=== PATIENT | male | born 1975 | race Caucasian/White ===

== ENCOUNTER 2021-03-04 14:26 | Inpatient (IN) | payer MEDICARE, MEDICAID ==
[~2021-03-04] VITALS: Ht 172.7 cm; Wt 80.3 kg
[2021-03-04] MEDS ORDERED: LEVO50 PO (18:23)
[2021-03-04] MEDS ORDERED: CLOZ100T32 PO ×2 (18:23)
[2021-03-04] MEDS ORDERED: LITH600C5 PO (18:23)
[2021-03-04] MEDS ORDERED: DIVA-80 PO (18:25)
[2021-03-04] MEDS ORDERED: HALOPERIDOL LACTATE 5 MG/ML VIAL ONE (18:56)
[2021-03-04] MEDS ORDERED: LORazepam 2 MG/ML VIAL ONE (18:56)
[2021-03-04] MEDS ORDERED: DiphenhydrAMINE HCL 50 MG/ML VIAL ONE (18:56)
[2021-03-04] MEDS ORDERED: LORazepam 2 MG/ML VIAL IM ONE (19:00)
[2021-03-04] MEDS ORDERED: HALOPERIDOL LACTATE 5 MG/ML VIAL IM ONE (19:00)
[2021-03-04] MEDS ORDERED: DiphenhydrAMINE HCL 50 MG/ML VIAL IM ONE (19:00)
[2021-03-04 19:30] VITALS: BP 124/91
[2021-03-05 05:13] VITALS: BP 108/72
[2021-03-05] MEDS: LEVOTHYROXINE SODIUM 50 MCG TABLET PO SCH (06:26)
[2021-03-05] MEDS ORDERED: LOPERAMIDE HCL 2 MG CAPSULE PO PRN (06:30)
[2021-03-05] MEDS ORDERED: IBUPROFEN 400 MG TABLET PO PRN (06:30)
[2021-03-05] MEDS ORDERED: PETROLATUM,WHITE 28 GM JELLY TP PRN (06:30)
[2021-03-05] MEDS ORDERED: ONDANSETRON HCL 4 MG TABLET PO PRN (06:30)
[2021-03-05] MEDS ORDERED: MAGNESIUM HYDROXIDE SUSPENSION 30 ML UDCUP PO PRN (06:30)
[2021-03-05] MEDS ORDERED: DOCUSATE SODIUM 100 MG CAPSULE PO PRN (06:30)
[2021-03-05] MEDS ORDERED: LEVOTHYROXINE SODIUM 50 MCG TABLET PO SCH (06:30)
[2021-03-05] MEDS ORDERED: CloNIDine HCL 0.1 MG TABLET PO PRN (06:30)
[2021-03-05] MEDS ORDERED: NICOTINE 14 MG/24 HOUR PATCH TD PRN (06:30)
[2021-03-05 09:05] VITALS: BP 100/62
[2021-03-05] MEDS: LORazepam 2 MG TABLET PO PRN ×2 (10:06→17:01)
[2021-03-05] MEDS: HALOPERIDOL 5 MG TABLET PO PRN ×2 (10:06→17:01)
[2021-03-05] MEDS: DIVALPROEX SODIUM 250 MG DR TABLET PO SCH ×2 (10:07→20:30)
[2021-03-05 16:22] VITALS: BP 110/61
[2021-03-05] MEDS: ZOLPIDEM TARTRATE 10 MG TABLET PO PRN (20:30)
[2021-03-06] MEDS: LEVOTHYROXINE SODIUM 50 MCG TABLET PO SCH (06:08)
[2021-03-06 07:51] LABS: EOSINOPHILS % (AUTO) 0 % (1.0-6.0); HEMATOCRIT 42.8 % (41-53); HEMOGLOBIN 13.9 g/dL (13.5-17.5); LYMPHOCYTES # (AUTO) 1.6 K/uL (1.0-4.8); LYMPHOCYTES % (AUTO) 20.3 % (22.0-44.0); MEAN CORPUSCULAR HEMOGLOBIN 29.2 pg (26.0-34.0); MEAN CORPUSCULAR HGB CONC 32.4 G/dL (31.0-37.0); MEAN CORPUSCULAR VOLUME 90 fL (80-100); MONOCYTES # (AUTO) 0.5 K/uL (0.1-1.0); MONOCYTES % (AUTO) 5.7 % (2.0-9.0); NEUTROPHILS # (AUTO) 5.9 K/uL (1.8-7.7); PLATELET COUNT (AUTO) 205 K/uL (150-450); RED BLOOD CELL COUNT(AUTO) 4.74 MIL/uL (4.50-5.90); RED CELL DISTRIBUTION WIDTH 14.7 % (11.5-14.5)
[2021-03-06 07:59] LABS: HEMOGLOBIN A1C 5.6 % (3.8-5.6)
[2021-03-06 08:43] LABS: CHOL/HDL RATIO 2.5 (4.2-7.3); FREE T4 (FREE THYROXINE) 1.25 ng/dL (0.76-1.46); THYROID STIMULATING HORMONE 0.45 uIU/mL (0.36-3.74)
[2021-03-06 08:48] VITALS: BP 106/72
[2021-03-06] MEDS: DIVALPROEX SODIUM 250 MG DR TABLET PO SCH ×2 (08:55→20:44)
[2021-03-06] MEDS ORDERED: CloZAPine 25 MG TABLET PO SCH (09:00)
[2021-03-06] MEDS: LORazepam 2 MG TABLET PO PRN ×2 (09:10→15:40)
[2021-03-06] MEDS: HALOPERIDOL 5 MG TABLET PO PRN (15:40)
[2021-03-06 16:08] VITALS: BP 108/61
[2021-03-07 02:16] VITALS: BP 104/66
[2021-03-07] MEDS: LEVOTHYROXINE SODIUM 50 MCG TABLET PO SCH (06:33)
[2021-03-07] MEDS: DIVALPROEX SODIUM 250 MG DR TABLET PO SCH ×2 (08:41→21:09)
[2021-03-07] MEDS: LORazepam 2 MG TABLET PO PRN ×2 (08:41→15:41)
[2021-03-07] MEDS ORDERED: CloZAPine 25 MG TABLET PO SCH ×2 (09:00→21:00)
[2021-03-07] MEDS: HALOPERIDOL 5 MG TABLET PO PRN ×2 (09:46→15:41)
[2021-03-07 10:07] VITALS: BP 110/66
[2021-03-07 16:29] VITALS: BP 106/65
[2021-03-08] MEDS: LEVOTHYROXINE SODIUM 50 MCG TABLET PO SCH (06:18)
[2021-03-08 08:16] VITALS: BP 102/60
[2021-03-08] MEDS: DIVALPROEX SODIUM 250 MG DR TABLET PO SCH ×2 (08:48→20:54)
[2021-03-08] MEDS ORDERED: CloZAPine 25 MG TABLET PO SCH ×2 (09:00→21:00)
[2021-03-08 16:23] VITALS: BP 102/62
[2021-03-08] MEDS: HALOPERIDOL 5 MG TABLET PO PRN (16:43)
[2021-03-08] MEDS: LORazepam 2 MG TABLET PO PRN (16:43)
[2021-03-08] MEDS: ZOLPIDEM TARTRATE 10 MG TABLET PO PRN (20:54)
[2021-03-09 06:01] VITALS: BP 110/68
[2021-03-09] MEDS: LEVOTHYROXINE SODIUM 50 MCG TABLET PO SCH (06:27)
[2021-03-09] MEDS: HALOPERIDOL 5 MG TABLET PO PRN (08:25)
[2021-03-09] MEDS: LORazepam 2 MG TABLET PO PRN ×2 (08:25→17:24)
[2021-03-09] MEDS: DIVALPROEX SODIUM 250 MG DR TABLET PO SCH ×2 (08:58→20:43)
[2021-03-09] MEDS: CloZAPine 25 MG TABLET PO SCH ×2 (08:58→20:43)
[2021-03-09 09:20] VITALS: BP 109/66
[2021-03-09 16:27] VITALS: BP 108/67
[2021-03-09] MEDS: ZOLPIDEM TARTRATE 10 MG TABLET PO PRN (20:43)
[2021-03-10 03:21] VITALS: BP 106/62
[2021-03-10] MEDS: LEVOTHYROXINE SODIUM 50 MCG TABLET PO SCH (06:52)
[2021-03-10] MEDS: DIVALPROEX SODIUM 250 MG DR TABLET PO SCH ×2 (08:18→20:31)
[2021-03-10] MEDS: CloZAPine 25 MG TABLET PO SCH ×2 (08:19→20:31)
[2021-03-10] MEDS: LORazepam 2 MG TABLET PO PRN (08:19)
[2021-03-10 08:33] VITALS: BP 112/64
[2021-03-10] MEDS: HALOPERIDOL 5 MG TABLET PO PRN (10:58)
[2021-03-10 16:29] VITALS: BP 104/68
[2021-03-10] MEDS: ZOLPIDEM TARTRATE 10 MG TABLET PO PRN (20:31)
[2021-03-11] MEDS: LEVOTHYROXINE SODIUM 50 MCG TABLET PO SCH (06:03)
[2021-03-11 06:31] VITALS: BP 110/68
[2021-03-11] MEDS: DIVALPROEX SODIUM 250 MG DR TABLET PO SCH ×2 (08:37→21:44)
[2021-03-11 08:38] VITALS: BP 110/77
[2021-03-11] MEDS ORDERED: CloZAPine 25 MG TABLET PO SCH (09:00)
[2021-03-11 16:23] VITALS: BP 112/69
[2021-03-11] MEDS ORDERED: CloZAPine 100 MG TABLET PO SCH (21:00)
[2021-03-12 05:30] VITALS: BP 108/68
[2021-03-12] MEDS: LEVOTHYROXINE SODIUM 50 MCG TABLET PO SCH (06:58)
[2021-03-12] MEDS: LORazepam 2 MG TABLET PO PRN ×3 (08:15→17:22)
[2021-03-12] MEDS: HALOPERIDOL 5 MG TABLET PO PRN (08:15)
[2021-03-12 08:33] VITALS: BP 123/91
[2021-03-12] MEDS: DIVALPROEX SODIUM 250 MG DR TABLET PO SCH ×2 (08:44→20:15)
[2021-03-12] MEDS ORDERED: CloZAPine 25 MG TABLET PO SCH (09:00)
[2021-03-12 16:11] VITALS: BP 110/65
[2021-03-12] MEDS: ZOLPIDEM TARTRATE 10 MG TABLET PO PRN (20:23)
[2021-03-12] MEDS ORDERED: CloZAPine 100 MG TABLET PO SCH (21:00)
[2021-03-13 01:02] VITALS: BP 113/68
[2021-03-13] MEDS: LEVOTHYROXINE SODIUM 50 MCG TABLET PO SCH (06:19)
[2021-03-13 07:44] LABS: BASOPHILS % (AUTO) 0.2 % (0.0-2.0); EOSINOPHILS % (AUTO) 0.2 % (1.0-6.0); HEMATOCRIT 45.1 % (41-53); HEMOGLOBIN 14.7 g/dL (13.5-17.5); LYMPHOCYTES # (AUTO) 1.8 K/uL (1.0-4.8); LYMPHOCYTES % (AUTO) 23.2 % (22.0-44.0); MEAN CORPUSCULAR HEMOGLOBIN 29.1 pg (26.0-34.0); MEAN CORPUSCULAR HGB CONC 32.5 G/dL (31.0-37.0); MEAN CORPUSCULAR VOLUME 90 fL (80-100); MONOCYTES # (AUTO) 0.4 K/uL (0.1-1.0); MONOCYTES % (AUTO) 5.7 % (2.0-9.0); NEUTROPHILS # (AUTO) 5.5 K/uL (1.8-7.7); NEUTROPHILS % (AUTO) 70.7 % (40.0-70.0); PLATELET COUNT (AUTO) 197 K/uL (150-450); RED BLOOD CELL COUNT(AUTO) 5.04 MIL/uL (4.50-5.90); RED CELL DISTRIBUTION WIDTH 14.2 % (11.5-14.5)
[2021-03-13] MEDS: LORazepam 2 MG TABLET PO PRN ×2 (08:05→18:13)
[2021-03-13] MEDS: HALOPERIDOL 5 MG TABLET PO PRN ×2 (08:05→18:13)
[2021-03-13] MEDS: DIVALPROEX SODIUM 250 MG DR TABLET PO SCH ×2 (08:26→21:51)
[2021-03-13 08:33] VITALS: BP 126/86
[2021-03-13] MEDS ORDERED: CloZAPine 25 MG TABLET PO SCH (09:00)
[2021-03-13] MEDS ORDERED: HALOPERIDOL LACTATE 5 MG/ML VIAL ONE (09:09)
[2021-03-13] MEDS ORDERED: LORazepam 2 MG/ML VIAL ONE (09:09)
[2021-03-13] MEDS ORDERED: DiphenhydrAMINE HCL 50 MG/ML VIAL ONE (09:09)
[2021-03-13] MEDS ORDERED: HALOPERIDOL LACTATE 5 MG/ML VIAL IM ONE (09:30)
[2021-03-13] MEDS ORDERED: DiphenhydrAMINE HCL 50 MG/ML VIAL IM ONE (09:30)
[2021-03-13] MEDS ORDERED: LORazepam 2 MG/ML VIAL IM ONE (09:30)
[2021-03-13 16:18] VITALS: BP 109/69
[2021-03-13] MEDS ORDERED: CloZAPine 100 MG TABLET PO SCH (21:00)
[2021-03-14 01:48] VITALS: BP 122/66
[2021-03-14] MEDS: LEVOTHYROXINE SODIUM 50 MCG TABLET PO SCH (06:21)
[2021-03-14] MEDS: LORazepam 2 MG TABLET PO PRN ×3 (07:50→16:44)
[2021-03-14] MEDS: HALOPERIDOL 5 MG TABLET PO PRN ×2 (07:50→16:44)
[2021-03-14] MEDS: CloZAPine 100 MG TABLET PO SCH ×2 (08:31→20:41)
[2021-03-14] MEDS: DIVALPROEX SODIUM 250 MG DR TABLET PO SCH ×2 (08:31→20:40)
[2021-03-14 08:54] VITALS: BP 138/71
[2021-03-14] MEDS ORDERED: HALOPERIDOL LACTATE 5 MG/ML VIAL ONE (13:35)
[2021-03-14] MEDS ORDERED: DiphenhydrAMINE HCL 50 MG/ML VIAL ONE (13:35)
[2021-03-14] MEDS ORDERED: LORazepam 2 MG/ML VIAL ONE (13:35)
[2021-03-14] MEDS ORDERED: HALOPERIDOL LACTATE 5 MG/ML VIAL IM ONE (13:45)
[2021-03-14] MEDS ORDERED: DiphenhydrAMINE HCL 50 MG/ML VIAL IM ONE (13:45)
[2021-03-14] MEDS ORDERED: LORazepam 2 MG/ML VIAL IM ONE (13:45)
[2021-03-14 16:20] VITALS: BP 153/73
[2021-03-15 06:27] VITALS: BP 132/76
[2021-03-15] MEDS: LEVOTHYROXINE SODIUM 50 MCG TABLET PO SCH (06:30)
[2021-03-15] MEDS: LORazepam 2 MG TABLET PO PRN ×2 (07:54→12:44)
[2021-03-15] MEDS: DIVALPROEX SODIUM 250 MG DR TABLET PO SCH ×2 (08:03→21:28)
[2021-03-15] MEDS: CloZAPine 100 MG TABLET PO SCH ×2 (08:03→21:28)
[2021-03-15 08:29] VITALS: BP 125/68
[2021-03-15] MEDS ORDERED: DiphenhydrAMINE HCL 50 MG/ML VIAL IM ONE ×2 (09:15→14:30)
[2021-03-15] MEDS ORDERED: LORazepam 2 MG/ML VIAL IM ONE ×2 (09:15→14:30)
[2021-03-15] MEDS ORDERED: HALOPERIDOL LACTATE 5 MG/ML VIAL IM ONE (09:15)
[2021-03-15] MEDS ORDERED: TUBERCULIN, PURIFIED PROTEIN DERIVATIVE 5 TU/0.1 ML SYRINGE ID ONE (09:45)
[2021-03-15 10:11] LABS: ANION GAP 11 mmol/L (8-16); CALCIUM, TOTAL 9.3 mg/dL (8.8-10.5); CARBON DIOXIDE 25 mmol/L (22-29); CHLORIDE 106 mmol/L (98-107); CREATININE 0.66 mg/dL (0.60-1.30); GLOMERULAR FILTR. RATE CALC > 60 mL/min (>60); GLUCOSE,RANDOM 87 mg/dL (70-110); POTASSIUM 4.6 mmol/L (3.5-5.1); SODIUM SERUM 142 mmol/L (136-145); UREA NITROGEN, BLOOD 14 mg/dL (7-18)
[2021-03-15] MEDS ORDERED: ChlorproMAZINE HCL 50 MG/2 ML AMP ONE (14:17)
[2021-03-15] MEDS ORDERED: ChlorproMAZINE HCL 50 MG/2 ML AMP IM ONE (14:30)
[2021-03-15 16:24] VITALS: BP 110/68
[2021-03-16 05:03] VITALS: BP 124/69
[2021-03-16] MEDS: LEVOTHYROXINE SODIUM 50 MCG TABLET PO SCH (06:38)
[2021-03-16] MEDS: LORazepam 2 MG TABLET PO PRN (07:46)
[2021-03-16] MEDS: DIVALPROEX SODIUM 250 MG DR TABLET PO SCH ×2 (08:01→21:00)
[2021-03-16 08:26] VITALS: BP 133/71
[2021-03-16] MEDS ORDERED: CloZAPine 25 MG TABLET PO SCH (09:00)
[2021-03-16] MEDS ORDERED: ChlorproMAZINE HCL 50 MG/2 ML AMP IM ONE ×2 (09:00→16:30)
[2021-03-16] MEDS ORDERED: LORazepam 2 MG/ML VIAL IM ONE ×2 (09:00→16:30)
[2021-03-16] MEDS ORDERED: DiphenhydrAMINE HCL 50 MG/ML VIAL IM ONE ×2 (09:00→16:30)
[2021-03-16] MEDS ORDERED: CloZAPine 100 MG TABLET PO SCH (21:00)
[2021-03-17] MEDS: LEVOTHYROXINE SODIUM 50 MCG TABLET PO SCH (06:43)
[2021-03-17] MEDS: DIVALPROEX SODIUM 250 MG DR TABLET PO SCH ×2 (08:20→20:28)
[2021-03-17 08:28] VITALS: BP 110/72
[2021-03-17] MEDS ORDERED: CloZAPine 25 MG TABLET PO SCH (09:00)
[2021-03-17] MEDS: HALOPERIDOL 5 MG TABLET PO PRN (09:03)
[2021-03-17] MEDS: LORazepam 2 MG TABLET PO PRN ×2 (09:03→16:39)
[2021-03-17] MEDS ORDERED: ChlorproMAZINE HCL 50 MG/2 ML AMP ONE (09:47)
[2021-03-17] MEDS ORDERED: LORazepam 2 MG/ML VIAL ONE (09:47)
[2021-03-17] MEDS ORDERED: DiphenhydrAMINE HCL 50 MG/ML VIAL ONE (09:47)
[2021-03-17] MEDS ORDERED: ChlorproMAZINE HCL 50 MG/2 ML AMP IM ONE (10:30)
[2021-03-17] MEDS ORDERED: LORazepam 2 MG/ML VIAL IM ONE (10:30)
[2021-03-17] MEDS ORDERED: DiphenhydrAMINE HCL 50 MG/ML VIAL IM ONE (10:30)
[2021-03-17 16:25] VITALS: BP 105/75
[2021-03-17] MEDS: LITHIUM CARBONATE 300 MG CAPSULE PO SCH (20:54)
[2021-03-17] MEDS ORDERED: CloZAPine 100 MG TABLET PO SCH (21:00)
[2021-03-18 05:34] VITALS: BP 131/68
[2021-03-18] MEDS: LEVOTHYROXINE SODIUM 50 MCG TABLET PO SCH (06:38)
[2021-03-18] MEDS: HALOPERIDOL 5 MG TABLET PO PRN ×2 (08:20→16:27)
[2021-03-18] MEDS: LORazepam 2 MG TABLET PO PRN ×2 (08:20→16:27)
[2021-03-18] MEDS: DIVALPROEX SODIUM 250 MG DR TABLET PO SCH ×2 (08:54→20:46)
[2021-03-18] MEDS: LITHIUM CARBONATE 300 MG CAPSULE PO SCH ×2 (08:54→20:46)
[2021-03-18] MEDS: CloZAPine 100 MG TABLET PO SCH ×2 (08:54→20:46)
[2021-03-18 09:01] VITALS: BP 117/81
[2021-03-18 16:22] VITALS: BP 125/86
[2021-03-19] MEDS: LEVOTHYROXINE SODIUM 50 MCG TABLET PO SCH (06:10)
[2021-03-19] MEDS: LORazepam 2 MG TABLET PO PRN (08:25)
[2021-03-19] MEDS: HALOPERIDOL 5 MG TABLET PO PRN (08:25)
[2021-03-19] MEDS: CloZAPine 100 MG TABLET PO SCH ×2 (08:51→20:38)
[2021-03-19] MEDS: DIVALPROEX SODIUM 250 MG DR TABLET PO SCH ×2 (08:51→20:38)
[2021-03-19] MEDS: LITHIUM CARBONATE 300 MG CAPSULE PO SCH ×2 (08:51→20:38)
[2021-03-19 10:11] VITALS: BP 109/69
[2021-03-19 16:21] VITALS: BP 106/66
[2021-03-20 01:26] VITALS: BP 109/81
[2021-03-20] MEDS: LEVOTHYROXINE SODIUM 50 MCG TABLET PO SCH (06:06)
[2021-03-20] MEDS: CloZAPine 100 MG TABLET PO SCH ×2 (08:24→20:48)
[2021-03-20] MEDS: DIVALPROEX SODIUM 250 MG DR TABLET PO SCH ×2 (08:24→20:48)
[2021-03-20] MEDS: LITHIUM CARBONATE 300 MG CAPSULE PO SCH ×2 (08:24→20:48)
[2021-03-20] MEDS: LORazepam 2 MG TABLET PO PRN ×2 (08:24→15:35)
[2021-03-20] MEDS: HALOPERIDOL 5 MG TABLET PO PRN ×2 (08:41→15:35)
[2021-03-20 10:13] VITALS: BP 113/73
[2021-03-20] MEDS ORDERED: LORazepam 2 MG/ML VIAL ONE (11:11)
[2021-03-20] MEDS ORDERED: DiphenhydrAMINE HCL 50 MG/ML VIAL ONE (11:11)
[2021-03-20] MEDS ORDERED: ChlorproMAZINE HCL 50 MG/2 ML AMP ONE (11:11)
[2021-03-20] MEDS ORDERED: DiphenhydrAMINE HCL 50 MG/ML VIAL IM ONE (11:15)
[2021-03-20] MEDS ORDERED: LORazepam 2 MG/ML VIAL IM ONE (11:15)
[2021-03-20] MEDS ORDERED: ChlorproMAZINE HCL 50 MG/2 ML AMP IM ONE (11:15)
[2021-03-20 17:09] VITALS: BP 103/75
[2021-03-21 04:00] VITALS: BP 110/75
[2021-03-21] MEDS: LEVOTHYROXINE SODIUM 50 MCG TABLET PO SCH (06:05)
[2021-03-21 07:18] LABS: BASOPHILS % (AUTO) 0.1 % (0.0-2.0); EOSINOPHILS % (AUTO) 0 % (1.0-6.0); HEMATOCRIT 43.1 % (41-53); HEMOGLOBIN 14.1 g/dL (13.5-17.5); LYMPHOCYTES # (AUTO) 1.9 K/uL (1.0-4.8); MEAN CORPUSCULAR HEMOGLOBIN 28.9 pg (26.0-34.0); MEAN CORPUSCULAR HGB CONC 32.6 G/dL (31.0-37.0); MEAN CORPUSCULAR VOLUME 89 fL (80-100); MONOCYTES # (AUTO) 0.7 K/uL (0.1-1.0); MONOCYTES % (AUTO) 7.7 % (2.0-9.0); NEUTROPHILS # (AUTO) 6.4 K/uL (1.8-7.7); NEUTROPHILS % (AUTO) 71.2 % (40.0-70.0); PLATELET COUNT (AUTO) 192 K/uL (150-450); RED BLOOD CELL COUNT(AUTO) 4.86 MIL/uL (4.50-5.90)
[2021-03-21 09:15] VITALS: BP 110/72
[2021-03-21] MEDS: CloZAPine 100 MG TABLET PO SCH ×2 (09:24→20:06)
[2021-03-21] MEDS: DIVALPROEX SODIUM 250 MG DR TABLET PO SCH ×2 (09:24→20:06)
[2021-03-21] MEDS: LITHIUM CARBONATE 300 MG CAPSULE PO SCH ×2 (09:24→20:06)
[2021-03-21] MEDS: LORazepam 2 MG TABLET PO PRN (11:35)
[2021-03-21 16:29] VITALS: BP 107/66
[2021-03-22 05:14] VITALS: BP 114/72
[2021-03-22] MEDS: LEVOTHYROXINE SODIUM 50 MCG TABLET PO SCH (06:03)
[2021-03-22] MEDS: LITHIUM CARBONATE 300 MG CAPSULE PO SCH ×2 (08:11→20:04)
[2021-03-22] MEDS: CloZAPine 100 MG TABLET PO SCH ×2 (08:11→20:04)
[2021-03-22] MEDS: LORazepam 2 MG TABLET PO PRN ×2 (08:11→13:20)
[2021-03-22] MEDS: DIVALPROEX SODIUM 250 MG DR TABLET PO SCH ×2 (08:11→20:04)
[2021-03-22 08:18] VITALS: BP 101/66
[2021-03-22 16:28] VITALS: BP 96/61
[2021-03-23 04:49] VITALS: BP 104/71
[2021-03-23] MEDS: LEVOTHYROXINE SODIUM 50 MCG TABLET PO SCH (06:18)
[2021-03-23] MEDS: LITHIUM CARBONATE 600 MG CAPSULE PO SCH ×2 (08:23→20:38)
[2021-03-23] MEDS: CloZAPine 100 MG TABLET PO SCH ×2 (08:23→20:38)
[2021-03-23] MEDS: DIVALPROEX SODIUM 250 MG DR TABLET PO SCH ×2 (08:23→20:38)
[2021-03-23 09:09] VITALS: BP 117/71
[2021-03-23 16:11] VITALS: BP 109/73
[2021-03-24 05:41] VITALS: BP 121/85
[2021-03-24] MEDS: LEVOTHYROXINE SODIUM 50 MCG TABLET PO SCH (06:16)
[2021-03-24] MEDS: LITHIUM CARBONATE 600 MG CAPSULE PO SCH ×2 (09:19→20:49)
[2021-03-24] MEDS: DIVALPROEX SODIUM 250 MG DR TABLET PO SCH ×2 (09:20→20:49)
[2021-03-24] MEDS: CloZAPine 100 MG TABLET PO SCH ×2 (09:20→20:49)
[2021-03-24 09:39] VITALS: BP 140/83
[2021-03-24] MEDS: HALOPERIDOL 5 MG TABLET PO PRN (10:51)
[2021-03-24] MEDS: LORazepam 2 MG TABLET PO PRN ×2 (10:51→16:41)
[2021-03-24] MEDS: ACETAMINOPHEN 325 MG TABLET PO PRN (11:04)
[2021-03-24 16:23] VITALS: BP 109/76
[2021-03-25 02:52] VITALS: BP 121/82
[2021-03-25] MEDS: LEVOTHYROXINE SODIUM 50 MCG TABLET PO SCH (06:55)
[2021-03-25] MEDS: DIVALPROEX SODIUM 250 MG DR TABLET PO SCH ×2 (08:40→21:43)
[2021-03-25] MEDS: CloZAPine 100 MG TABLET PO SCH ×2 (08:40→21:44)
[2021-03-25] MEDS: LITHIUM CARBONATE 600 MG CAPSULE PO SCH ×2 (08:41→21:43)
[2021-03-25 09:06] VITALS: BP 111/73
[2021-03-25] MEDS: LORazepam 2 MG TABLET PO PRN (14:42)
[2021-03-25 16:16] VITALS: BP 118/79
[2021-03-26 04:52] VITALS: BP 115/76
[2021-03-26] MEDS: LEVOTHYROXINE SODIUM 50 MCG TABLET PO SCH (06:25)
[2021-03-26] MEDS: LORazepam 2 MG TABLET PO PRN (08:07)
[2021-03-26] MEDS: CloZAPine 100 MG TABLET PO SCH ×2 (08:07→21:30)
[2021-03-26] MEDS: DIVALPROEX SODIUM 250 MG DR TABLET PO SCH ×2 (08:07→21:30)
[2021-03-26] MEDS: LITHIUM CARBONATE 600 MG CAPSULE PO SCH ×2 (08:07→21:30)
[2021-03-26 09:04] VITALS: BP 123/78
[2021-03-26] MEDS: HALOPERIDOL 5 MG TABLET PO PRN (12:41)
[2021-03-26 15:13] LABS: BASOPHILS % (AUTO) 1.1 % (0.0-2.0); EOSINOPHILS % (AUTO) 0 % (1.0-6.0); HEMATOCRIT 42.2 % (41-53); HEMOGLOBIN 13.6 g/dL (13.5-17.5); LYMPHOCYTES # (AUTO) 1.7 K/uL (1.0-4.8); LYMPHOCYTES % (AUTO) 18.8 % (22.0-44.0); MEAN CORPUSCULAR HGB CONC 32.3 G/dL (31.0-37.0); MEAN CORPUSCULAR VOLUME 90 fL (80-100); MONOCYTES # (AUTO) 0.6 K/uL (0.1-1.0); MONOCYTES % (AUTO) 7.1 % (2.0-9.0); NEUTROPHILS # (AUTO) 6.7 K/uL (1.8-7.7); PLATELET COUNT (AUTO) 223 K/uL (150-450); RED CELL DISTRIBUTION WIDTH 14.7 % (11.5-14.5)
[2021-03-26 16:13] VITALS: BP 151/67
[2021-03-27 00:22] VITALS: BP 129/75
[2021-03-27] MEDS: LEVOTHYROXINE SODIUM 50 MCG TABLET PO SCH (06:28)
[2021-03-27 08:20] VITALS: BP 130/82
[2021-03-27] MEDS: DIVALPROEX SODIUM 250 MG DR TABLET PO SCH ×2 (08:22→21:29)
[2021-03-27] MEDS: LITHIUM CARBONATE 600 MG CAPSULE PO SCH ×2 (08:22→21:29)
[2021-03-27] MEDS: CloZAPine 100 MG TABLET PO SCH ×2 (08:22→21:29)
[2021-03-27] MEDS: LORazepam 2 MG TABLET PO PRN ×2 (11:26→16:03)
[2021-03-27] MEDS: HALOPERIDOL 5 MG TABLET PO PRN (16:03)
[2021-03-27 16:06] VITALS: BP 123/75
[2021-03-28 04:22] VITALS: BP 111/88
[2021-03-28] MEDS: LEVOTHYROXINE SODIUM 50 MCG TABLET PO SCH (06:33)
[2021-03-28 08:11] VITALS: BP 103/68
[2021-03-28] MEDS: LITHIUM CARBONATE 600 MG CAPSULE PO SCH ×2 (08:47→21:31)
[2021-03-28] MEDS: CloZAPine 100 MG TABLET PO SCH ×2 (08:47→21:31)
[2021-03-28] MEDS: DIVALPROEX SODIUM 250 MG DR TABLET PO SCH ×2 (08:47→21:30)
[2021-03-28] MEDS: HALOPERIDOL 5 MG TABLET PO PRN (15:50)
[2021-03-28] MEDS: LORazepam 2 MG TABLET PO PRN (15:50)
[2021-03-28 16:15] VITALS: BP 109/73
[2021-03-28] MEDS: ZOLPIDEM TARTRATE 10 MG TABLET PO PRN (21:31)
[2021-03-29] MEDS: LEVOTHYROXINE SODIUM 50 MCG TABLET PO SCH (06:22)
[2021-03-29 06:59] VITALS: BP 115/76
[2021-03-29] MEDS: DIVALPROEX SODIUM 250 MG DR TABLET PO SCH ×2 (09:04→20:31)
[2021-03-29] MEDS: LITHIUM CARBONATE 600 MG CAPSULE PO SCH ×2 (09:05→20:30)
[2021-03-29] MEDS: CloZAPine 100 MG TABLET PO SCH ×2 (09:05→20:31)
[2021-03-29] MEDS: LORazepam 2 MG TABLET PO PRN ×3 (09:05→20:30)
[2021-03-29] MEDS: HALOPERIDOL 5 MG TABLET PO PRN ×3 (09:05→20:30)
[2021-03-29 10:48] VITALS: BP 100/60
[2021-03-29 16:41] VITALS: BP 118/76
[2021-03-30] MEDS: LEVOTHYROXINE SODIUM 50 MCG TABLET PO SCH (06:13)
[2021-03-30 06:27] VITALS: BP 121/76
[2021-03-30] MEDS: CloZAPine 100 MG TABLET PO SCH ×2 (08:52→21:35)
[2021-03-30] MEDS: DIVALPROEX SODIUM 250 MG DR TABLET PO SCH ×2 (08:52→21:36)
[2021-03-30] MEDS: LITHIUM CARBONATE 600 MG CAPSULE PO SCH ×2 (08:52→21:35)
[2021-03-30] MEDS: HALOPERIDOL 5 MG TABLET PO PRN (08:53)
[2021-03-30] MEDS: LORazepam 2 MG TABLET PO PRN (08:53)
[2021-03-30 09:22] VITALS: BP 103/51
[2021-03-30 16:18] VITALS: BP 117/70
[2021-03-31 06:07] VITALS: BP 120/76
[2021-03-31] MEDS: LEVOTHYROXINE SODIUM 50 MCG TABLET PO SCH (06:15)
[2021-03-31] MEDS: LITHIUM CARBONATE 600 MG CAPSULE PO SCH ×2 (08:27→21:02)
[2021-03-31] MEDS: DIVALPROEX SODIUM 250 MG DR TABLET PO SCH ×2 (08:27→21:02)
[2021-03-31] MEDS: CloZAPine 100 MG TABLET PO SCH ×2 (08:27→21:02)
[2021-03-31 08:31] VITALS: BP 122/82
[2021-03-31] MEDS: HALOPERIDOL 5 MG TABLET PO PRN (13:48)
[2021-03-31 16:38] VITALS: BP 129/83
[2021-04-01 00:35] VITALS: BP 121/70
[2021-04-01] MEDS: LEVOTHYROXINE SODIUM 50 MCG TABLET PO SCH (06:56)
[2021-04-01 08:23] VITALS: BP 113/72
[2021-04-01] MEDS: DIVALPROEX SODIUM 250 MG DR TABLET PO SCH ×2 (08:28→21:41)
[2021-04-01] MEDS: LORazepam 2 MG TABLET PO PRN (08:28)
[2021-04-01] MEDS: LITHIUM CARBONATE 600 MG CAPSULE PO SCH ×2 (08:28→21:42)
[2021-04-01] MEDS: CloZAPine 100 MG TABLET PO SCH ×2 (08:28→21:42)
[2021-04-01] MEDS: HALOPERIDOL 5 MG TABLET PO PRN (13:14)
[2021-04-01 16:13] VITALS: BP 109/61
[2021-04-01] MEDS: ZOLPIDEM TARTRATE 10 MG TABLET PO PRN (21:41)
[2021-04-02 04:36] VITALS: BP 118/76
[2021-04-02] MEDS: LEVOTHYROXINE SODIUM 50 MCG TABLET PO SCH (06:23)
[2021-04-02 08:02] LABS: BASOPHILS % (AUTO) 0.2 % (0.0-2.0); EOSINOPHILS % (AUTO) 0 % (1.0-6.0); HEMATOCRIT 44.6 % (41-53); HEMOGLOBIN 14.6 g/dL (13.5-17.5); LYMPHOCYTES % (AUTO) 18.1 % (22.0-44.0); MEAN CORPUSCULAR HEMOGLOBIN 28.9 pg (26.0-34.0); MEAN CORPUSCULAR HGB CONC 32.7 G/dL (31.0-37.0); MEAN CORPUSCULAR VOLUME 89 fL (80-100); MONOCYTES # (AUTO) 0.6 K/uL (0.1-1.0); MONOCYTES % (AUTO) 5.1 % (2.0-9.0); NEUTROPHILS # (AUTO) 8.3 K/uL (1.8-7.7); NEUTROPHILS % (AUTO) 76.6 % (40.0-70.0); PLATELET COUNT (AUTO) 209 K/uL (150-450); RED BLOOD CELL COUNT(AUTO) 5.03 MIL/uL (4.50-5.90); RED CELL DISTRIBUTION WIDTH 14.2 % (11.5-14.5)
[2021-04-02 08:21] VITALS: BP 116/69
[2021-04-02] MEDS: CloZAPine 100 MG TABLET PO SCH ×2 (08:29→20:51)
[2021-04-02] MEDS: DIVALPROEX SODIUM 250 MG DR TABLET PO SCH ×2 (08:29→20:51)
[2021-04-02] MEDS: LITHIUM CARBONATE 600 MG CAPSULE PO SCH ×2 (08:29→20:50)
[2021-04-02] MEDS: LORazepam 2 MG TABLET PO PRN (08:29)
[2021-04-02 16:10] VITALS: BP 112/76
[2021-04-03 05:47] VITALS: BP 118/74
[2021-04-03] MEDS: LEVOTHYROXINE SODIUM 50 MCG TABLET PO SCH (06:52)
[2021-04-03 08:22] VITALS: BP 108/75
[2021-04-03] MEDS: CloZAPine 100 MG TABLET PO SCH ×2 (09:08→20:08)
[2021-04-03] MEDS: LITHIUM CARBONATE 600 MG CAPSULE PO SCH ×2 (09:08→20:08)
[2021-04-03] MEDS: DIVALPROEX SODIUM 250 MG DR TABLET PO SCH ×2 (10:46→20:08)
[2021-04-03] MEDS: LORazepam 2 MG TABLET PO PRN (12:10)
[2021-04-03] MEDS: HALOPERIDOL 5 MG TABLET PO PRN (12:10)
[2021-04-03 16:14] VITALS: BP 134/75
[2021-04-04 05:07] VITALS: BP 121/72
[2021-04-04] MEDS: LEVOTHYROXINE SODIUM 50 MCG TABLET PO SCH (06:26)
[2021-04-04] MEDS: CloZAPine 100 MG TABLET PO SCH ×2 (08:22→21:23)
[2021-04-04] MEDS: LORazepam 2 MG TABLET PO PRN ×2 (08:22→15:44)
[2021-04-04] MEDS: DIVALPROEX SODIUM 250 MG DR TABLET PO SCH ×2 (08:22→21:22)
[2021-04-04] MEDS: LITHIUM CARBONATE 600 MG CAPSULE PO SCH ×2 (08:22→21:23)
[2021-04-04 08:29] VITALS: BP 124/76
[2021-04-04] MEDS: HALOPERIDOL 5 MG TABLET PO PRN (15:44)
[2021-04-04 16:18] VITALS: BP 108/66
[2021-04-05 04:55] VITALS: BP 118/76
[2021-04-05] MEDS: LEVOTHYROXINE SODIUM 50 MCG TABLET PO SCH (06:17)
[2021-04-05 08:29] VITALS: BP 115/74
[2021-04-05] MEDS: CloZAPine 100 MG TABLET PO SCH ×2 (08:51→20:29)
[2021-04-05] MEDS: DIVALPROEX SODIUM 250 MG DR TABLET PO SCH ×2 (08:51→20:29)
[2021-04-05] MEDS: LORazepam 2 MG TABLET PO PRN ×2 (08:51→13:12)
[2021-04-05] MEDS: LITHIUM CARBONATE 600 MG CAPSULE PO SCH ×2 (08:51→20:29)
[2021-04-05 16:19] VITALS: BP 113/75
[2021-04-06 03:16] VITALS: BP 113/73
[2021-04-06] MEDS: LEVOTHYROXINE SODIUM 50 MCG TABLET PO SCH (06:12)
[2021-04-06] MEDS: CloZAPine 100 MG TABLET PO SCH ×2 (08:05→20:41)
[2021-04-06] MEDS: LITHIUM CARBONATE 600 MG CAPSULE PO SCH ×2 (08:05→20:41)
[2021-04-06] MEDS: DIVALPROEX SODIUM 250 MG DR TABLET PO SCH ×2 (08:05→20:41)
[2021-04-06] MEDS: LORazepam 2 MG TABLET PO PRN ×3 (08:06→20:25)
[2021-04-06] MEDS: HALOPERIDOL 5 MG TABLET PO PRN ×3 (08:06→20:25)
[2021-04-06 08:22] VITALS: BP 136/93
[2021-04-06 16:16] VITALS: BP 100/76
[2021-04-07 06:26] VITALS: BP 116/76
[2021-04-07] MEDS: LEVOTHYROXINE SODIUM 50 MCG TABLET PO SCH (06:32)
[2021-04-07] MEDS: LITHIUM CARBONATE 600 MG CAPSULE PO SCH ×2 (08:31→20:15)
[2021-04-07] MEDS: CloZAPine 100 MG TABLET PO SCH ×2 (08:31→20:15)
[2021-04-07] MEDS: DIVALPROEX SODIUM 250 MG DR TABLET PO SCH ×2 (08:32→20:15)
[2021-04-07] MEDS: LORazepam 2 MG TABLET PO PRN ×3 (08:37→20:15)
[2021-04-07 08:51] VITALS: BP 121/77
[2021-04-07] MEDS: HALOPERIDOL 5 MG TABLET PO PRN (15:25)
[2021-04-07 16:26] VITALS: BP 128/70
[2021-04-07] MEDS: ZOLPIDEM TARTRATE 10 MG TABLET PO PRN (20:15)
[2021-04-08 05:25] VITALS: BP 122/76
[2021-04-08] MEDS: LEVOTHYROXINE SODIUM 50 MCG TABLET PO SCH (06:58)
[2021-04-08] MEDS: LITHIUM CARBONATE 600 MG CAPSULE PO SCH ×2 (08:14→20:53)
[2021-04-08] MEDS: CloZAPine 100 MG TABLET PO SCH ×2 (08:14→20:52)
[2021-04-08] MEDS: DIVALPROEX SODIUM 250 MG DR TABLET PO SCH ×2 (08:14→20:53)
[2021-04-08] MEDS: LORazepam 2 MG TABLET PO PRN ×3 (08:20→16:48)
[2021-04-08 08:44] VITALS: BP 122/83
[2021-04-08 16:15] VITALS: BP 117/88
[2021-04-08] MEDS: HALOPERIDOL 5 MG TABLET PO PRN (16:48)
[2021-04-08] MEDS: ZOLPIDEM TARTRATE 10 MG TABLET PO PRN (20:53)
[2021-04-09 05:04] VITALS: BP 103/62
[2021-04-09] MEDS: LEVOTHYROXINE SODIUM 50 MCG TABLET PO SCH (06:13)
[2021-04-09] MEDS: LORazepam 2 MG TABLET PO PRN ×3 (08:40→18:05)
[2021-04-09] MEDS: LITHIUM CARBONATE 600 MG CAPSULE PO SCH ×2 (08:43→20:06)
[2021-04-09] MEDS: DIVALPROEX SODIUM 250 MG DR TABLET PO SCH ×2 (08:43→20:06)
[2021-04-09] MEDS: CloZAPine 100 MG TABLET PO SCH ×2 (08:43→20:06)
[2021-04-09 08:48] VITALS: BP 126/74
[2021-04-09 16:27] VITALS: BP 125/78
[2021-04-10 01:29] VITALS: BP 126/81
[2021-04-10] MEDS: LEVOTHYROXINE SODIUM 50 MCG TABLET PO SCH (06:14)
[2021-04-10 07:16] LABS: BASOPHILS % (AUTO) 0.2 % (0.0-2.0); EOSINOPHILS % (AUTO) 0 % (1.0-6.0); HEMATOCRIT 40.9 % (41-53); HEMOGLOBIN 13.6 g/dL (13.5-17.5); LYMPHOCYTES # (AUTO) 1.3 K/uL (1.0-4.8); LYMPHOCYTES % (AUTO) 12.1 % (22.0-44.0); MEAN CORPUSCULAR HEMOGLOBIN 28.9 pg (26.0-34.0); MEAN CORPUSCULAR HGB CONC 33.1 G/dL (31.0-37.0); MEAN CORPUSCULAR VOLUME 87 fL (80-100); MONOCYTES # (AUTO) 0.8 K/uL (0.1-1.0); NEUTROPHILS # (AUTO) 8.9 K/uL (1.8-7.7); NEUTROPHILS % (AUTO) 80.7 % (40.0-70.0); PLATELET COUNT (AUTO) 190 K/uL (150-450); RED BLOOD CELL COUNT(AUTO) 4.69 MIL/uL (4.50-5.90); RED CELL DISTRIBUTION WIDTH 13.9 % (11.5-14.5)
[2021-04-10 08:53] VITALS: BP 117/78
[2021-04-10] MEDS: DIVALPROEX SODIUM 250 MG DR TABLET PO SCH ×2 (08:53→20:58)
[2021-04-10] MEDS: LORazepam 2 MG TABLET PO PRN ×3 (08:53→18:18)
[2021-04-10] MEDS: CloZAPine 100 MG TABLET PO SCH ×2 (08:53→20:58)
[2021-04-10] MEDS: HALOPERIDOL 5 MG TABLET PO PRN ×2 (08:56→16:30)
[2021-04-10] MEDS: LITHIUM CARBONATE 600 MG CAPSULE PO SCH ×2 (08:56→20:58)
[2021-04-10 16:21] VITALS: BP 121/83
[2021-04-10] MEDS: ZOLPIDEM TARTRATE 10 MG TABLET PO PRN (20:58)
[2021-04-11 02:10] VITALS: BP 126/68
[2021-04-11] MEDS: LEVOTHYROXINE SODIUM 50 MCG TABLET PO SCH (06:28)
[2021-04-11 08:35] VITALS: BP 117/73
[2021-04-11] MEDS: CloZAPine 100 MG TABLET PO SCH ×2 (09:23→20:44)
[2021-04-11] MEDS: DIVALPROEX SODIUM 250 MG DR TABLET PO SCH ×2 (09:23→20:44)
[2021-04-11] MEDS: LITHIUM CARBONATE 600 MG CAPSULE PO SCH ×2 (09:23→20:44)
[2021-04-11] MEDS: LORazepam 2 MG TABLET PO PRN ×2 (12:25→16:25)
[2021-04-11] MEDS: HALOPERIDOL 5 MG TABLET PO PRN (15:58)
[2021-04-11 16:12] VITALS: BP 123/80
[2021-04-11] MEDS: ZOLPIDEM TARTRATE 10 MG TABLET PO PRN (20:44)
[2021-04-12 03:10] VITALS: BP 106/72
[2021-04-12] MEDS: LEVOTHYROXINE SODIUM 50 MCG TABLET PO SCH (06:08)
[2021-04-12 07:38] LABS: COVID AG,FIA SOURCE NASOPHARYNGEAL
[2021-04-12] MEDS: LORazepam 2 MG TABLET PO PRN ×2 (08:30→16:14)
[2021-04-12] MEDS: DIVALPROEX SODIUM 250 MG DR TABLET PO SCH ×2 (08:31→20:53)
[2021-04-12] MEDS: CloZAPine 100 MG TABLET PO SCH ×2 (08:31→20:54)
[2021-04-12] MEDS: LITHIUM CARBONATE 600 MG CAPSULE PO SCH ×2 (08:31→20:54)
[2021-04-12] MEDS: HALOPERIDOL 5 MG TABLET PO PRN ×2 (09:42→16:14)
[2021-04-12 11:10] VITALS: BP 123/90
[2021-04-12 16:17] VITALS: BP 120/76
[2021-04-12] MEDS: ZOLPIDEM TARTRATE 10 MG TABLET PO PRN (20:54)
[2021-04-13 05:48] VITALS: BP 118/80
[2021-04-13] MEDS: LEVOTHYROXINE SODIUM 50 MCG TABLET PO SCH (06:17)
[2021-04-13 08:35] VITALS: BP 134/91
[2021-04-13] MEDS: DIVALPROEX SODIUM 250 MG DR TABLET PO SCH ×2 (09:05→20:06)
[2021-04-13] MEDS: CloZAPine 100 MG TABLET PO SCH ×2 (09:05→20:06)
[2021-04-13] MEDS: LORazepam 2 MG TABLET PO PRN ×2 (09:05→14:22)
[2021-04-13] MEDS: LITHIUM CARBONATE 600 MG CAPSULE PO SCH ×2 (09:05→20:05)
[2021-04-13 16:20] VITALS: BP 104/65
[2021-04-13] MEDS: ZOLPIDEM TARTRATE 10 MG TABLET PO PRN (20:07)
[2021-04-14 04:50] VITALS: BP 122/78
[2021-04-14] MEDS: LEVOTHYROXINE SODIUM 50 MCG TABLET PO SCH (06:41)
[2021-04-14] MEDS: DIVALPROEX SODIUM 250 MG DR TABLET PO SCH ×2 (07:57→20:32)
[2021-04-14] MEDS: LITHIUM CARBONATE 600 MG CAPSULE PO SCH ×2 (07:57→20:32)
[2021-04-14] MEDS: LORazepam 2 MG TABLET PO PRN ×3 (07:57→17:04)
[2021-04-14] MEDS: CloZAPine 100 MG TABLET PO SCH ×2 (07:57→20:32)
[2021-04-14 08:35] VITALS: BP 132/78
[2021-04-14 16:25] VITALS: BP 127/74
[2021-04-14] MEDS: HALOPERIDOL 5 MG TABLET PO PRN (17:04)
[2021-04-14] MEDS: ZOLPIDEM TARTRATE 10 MG TABLET PO PRN (20:33)
[2021-04-15 05:39] VITALS: BP 124/76
[2021-04-15] MEDS: LEVOTHYROXINE SODIUM 50 MCG TABLET PO SCH (06:40)
[2021-04-15] MEDS: DIVALPROEX SODIUM 250 MG DR TABLET PO SCH ×2 (08:00→20:36)
[2021-04-15] MEDS: LITHIUM CARBONATE 600 MG CAPSULE PO SCH ×2 (08:00→20:36)
[2021-04-15] MEDS: LORazepam 2 MG TABLET PO PRN ×3 (08:00→20:37)
[2021-04-15] MEDS: CloZAPine 100 MG TABLET PO SCH ×2 (08:00→20:36)
[2021-04-15 08:53] VITALS: BP 134/89
[2021-04-15] MEDS: HALOPERIDOL 5 MG TABLET PO PRN (15:53)
[2021-04-15 16:30] VITALS: BP 116/78
[2021-04-15] MEDS: ZOLPIDEM TARTRATE 10 MG TABLET PO PRN (20:37)
[2021-04-16] MEDS: LEVOTHYROXINE SODIUM 50 MCG TABLET PO SCH (06:37)
[2021-04-16 07:00] VITALS: BP 123/76
[2021-04-16] MEDS: LITHIUM CARBONATE 600 MG CAPSULE PO SCH ×2 (08:11→21:01)
[2021-04-16] MEDS: DIVALPROEX SODIUM 250 MG DR TABLET PO SCH ×2 (08:11→21:01)
[2021-04-16] MEDS: CloZAPine 100 MG TABLET PO SCH ×2 (08:11→21:01)
[2021-04-16 08:12] VITALS: BP 110/73
[2021-04-16] MEDS: LORazepam 2 MG TABLET PO PRN ×3 (09:14→21:02)
[2021-04-16] MEDS: HALOPERIDOL 5 MG TABLET PO PRN ×2 (10:04→16:16)
[2021-04-16] MEDS ORDERED: ChlorproMAZINE HCL 50 MG/2 ML AMP ONE (10:06)
[2021-04-16] MEDS ORDERED: LORazepam 2 MG/ML VIAL ONE (10:06)
[2021-04-16] MEDS ORDERED: DiphenhydrAMINE HCL 50 MG/ML VIAL ONE (10:07)
[2021-04-16] MEDS ORDERED: DiphenhydrAMINE HCL 50 MG/ML VIAL IM ONE (10:15)
[2021-04-16] MEDS ORDERED: LORazepam 2 MG/ML VIAL IM ONE (10:15)
[2021-04-16] MEDS ORDERED: ChlorproMAZINE HCL 50 MG/2 ML AMP IM ONE (10:15)
[2021-04-16 16:26] VITALS: BP 109/76
[2021-04-16] MEDS: ZOLPIDEM TARTRATE 10 MG TABLET PO PRN (21:01)
[2021-04-17 05:59] VITALS: BP 136/79
[2021-04-17] MEDS: LEVOTHYROXINE SODIUM 50 MCG TABLET PO SCH (06:09)
[2021-04-17 07:40] LABS: EOSINOPHILS % (AUTO) 0 % (1.0-6.0); HEMATOCRIT 40.2 % (41-53); HEMOGLOBIN 13.4 g/dL (13.5-17.5); LYMPHOCYTES # (AUTO) 1.8 K/uL (1.0-4.8); LYMPHOCYTES % (AUTO) 22.1 % (22.0-44.0); MEAN CORPUSCULAR HEMOGLOBIN 29.2 pg (26.0-34.0); MEAN CORPUSCULAR HGB CONC 33.3 G/dL (31.0-37.0); MEAN CORPUSCULAR VOLUME 88 fL (80-100); MONOCYTES # (AUTO) 0.7 K/uL (0.1-1.0); MONOCYTES % (AUTO) 8.1 % (2.0-9.0); NEUTROPHILS # (AUTO) 5.6 K/uL (1.8-7.7); NEUTROPHILS % (AUTO) 69.8 % (40.0-70.0); PLATELET COUNT (AUTO) 173 K/uL (150-450); RED BLOOD CELL COUNT(AUTO) 4.59 MIL/uL (4.50-5.90); RED CELL DISTRIBUTION WIDTH 14.1 % (11.5-14.5)
[2021-04-17] MEDS: DIVALPROEX SODIUM 250 MG DR TABLET PO SCH ×2 (08:10→20:41)
[2021-04-17] MEDS: CloZAPine 100 MG TABLET PO SCH ×2 (08:11→20:41)
[2021-04-17] MEDS: LORazepam 2 MG TABLET PO PRN ×2 (08:11→17:03)
[2021-04-17] MEDS: HALOPERIDOL 5 MG TABLET PO PRN ×2 (08:11→17:03)
[2021-04-17] MEDS: LITHIUM CARBONATE 600 MG CAPSULE PO SCH ×2 (08:11→20:41)
[2021-04-17 08:26] VITALS: BP 129/90
[2021-04-17 16:17] VITALS: BP 107/75
[2021-04-18 04:29] VITALS: BP 120/76
[2021-04-18] MEDS: LEVOTHYROXINE SODIUM 50 MCG TABLET PO SCH (06:40)
[2021-04-18 08:19] VITALS: BP 118/72
[2021-04-18] MEDS: LITHIUM CARBONATE 600 MG CAPSULE PO SCH ×2 (08:23→20:40)
[2021-04-18] MEDS: DIVALPROEX SODIUM 250 MG DR TABLET PO SCH ×2 (08:23→20:40)
[2021-04-18] MEDS: CloZAPine 100 MG TABLET PO SCH ×2 (08:23→20:40)
[2021-04-18] MEDS: LORazepam 2 MG TABLET PO PRN ×2 (09:27→20:40)
[2021-04-18] MEDS: HALOPERIDOL 5 MG TABLET PO PRN ×2 (10:28→20:41)
[2021-04-18 16:18] VITALS: BP 113/72
[2021-04-19] MEDS: LEVOTHYROXINE SODIUM 50 MCG TABLET PO SCH (06:22)
[2021-04-19 08:26] VITALS: BP 117/74
[2021-04-19] MEDS: HALOPERIDOL 5 MG TABLET PO PRN ×2 (08:28→16:00)
[2021-04-19] MEDS: LITHIUM CARBONATE 600 MG CAPSULE PO SCH ×2 (08:28→20:50)
[2021-04-19] MEDS: DIVALPROEX SODIUM 250 MG DR TABLET PO SCH ×2 (08:28→20:50)
[2021-04-19] MEDS: CloZAPine 100 MG TABLET PO SCH ×2 (08:28→20:50)
[2021-04-19] MEDS: LORazepam 2 MG TABLET PO PRN ×2 (09:59→16:00)
[2021-04-19 16:12] VITALS: BP 108/65
[2021-04-19] MEDS: ZOLPIDEM TARTRATE 10 MG TABLET PO PRN (20:50)
[2021-04-20 00:30] VITALS: BP 128/71
[2021-04-20] MEDS: LEVOTHYROXINE SODIUM 50 MCG TABLET PO SCH (06:37)
[2021-04-20] MEDS: LITHIUM CARBONATE 600 MG CAPSULE PO SCH ×2 (07:57→20:28)
[2021-04-20] MEDS: CloZAPine 100 MG TABLET PO SCH ×2 (07:58→20:28)
[2021-04-20] MEDS: DIVALPROEX SODIUM 250 MG DR TABLET PO SCH ×2 (07:58→20:28)
[2021-04-20 08:33] VITALS: BP 123/75
[2021-04-20] MEDS: LORazepam 2 MG TABLET PO PRN ×2 (10:06→16:09)
[2021-04-20] MEDS: HALOPERIDOL 5 MG TABLET PO PRN ×2 (10:36→16:09)
[2021-04-20 14:37] LABS: GLUCOMETER DEV NAME(LOC) POC.BV
[2021-04-20 16:48] VITALS: BP 101/71
[2021-04-20] MEDS: ZOLPIDEM TARTRATE 10 MG TABLET PO PRN (20:28)
[2021-04-21 05:18] VITALS: BP 116/70
[2021-04-21] MEDS: LEVOTHYROXINE SODIUM 50 MCG TABLET PO SCH (06:35)
[2021-04-21 08:36] VITALS: BP 115/72
[2021-04-21] MEDS: DIVALPROEX SODIUM 250 MG DR TABLET PO SCH ×2 (08:54→20:27)
[2021-04-21] MEDS: LITHIUM CARBONATE 600 MG CAPSULE PO SCH ×2 (08:54→20:27)
[2021-04-21] MEDS: HALOPERIDOL 5 MG TABLET PO PRN ×3 (08:55→18:13)
[2021-04-21] MEDS: CloZAPine 100 MG TABLET PO SCH ×2 (08:55→20:27)
[2021-04-21] MEDS: LORazepam 2 MG TABLET PO PRN ×3 (08:55→17:16)
[2021-04-21] MEDS: NICOTINE POLACRILEX 2 MG LOZENGE PO PRN (11:44)
[2021-04-21 16:14] VITALS: BP 101/70
[2021-04-21] MEDS: ZOLPIDEM TARTRATE 10 MG TABLET PO PRN (20:27)
[2021-04-22 03:19] VITALS: BP 124/68
[2021-04-22] MEDS: LEVOTHYROXINE SODIUM 50 MCG TABLET PO SCH (06:23)
[2021-04-22] MEDS: CloZAPine 100 MG TABLET PO SCH ×2 (08:21→20:17)
[2021-04-22] MEDS: LITHIUM CARBONATE 600 MG CAPSULE PO SCH ×2 (08:21→20:17)
[2021-04-22] MEDS: DIVALPROEX SODIUM 250 MG DR TABLET PO SCH ×2 (08:21→20:17)
[2021-04-22 08:28] VITALS: BP 102/67
[2021-04-22] MEDS: HALOPERIDOL 5 MG TABLET PO PRN (09:49)
[2021-04-22] MEDS: LORazepam 2 MG TABLET PO PRN ×3 (09:49→18:53)
[2021-04-22] MEDS ORDERED: LORazepam 2 MG/ML VIAL ONE (12:34)
[2021-04-22] MEDS ORDERED: ChlorproMAZINE HCL 50 MG/2 ML AMP ONE (12:34)
[2021-04-22] MEDS ORDERED: DiphenhydrAMINE HCL 50 MG/ML VIAL ONE (12:35)
[2021-04-22] MEDS ORDERED: DiphenhydrAMINE HCL 50 MG/ML VIAL IM ONE (13:00)
[2021-04-22] MEDS ORDERED: LORazepam 2 MG/ML VIAL IM ONE (13:00)
[2021-04-22] MEDS ORDERED: ChlorproMAZINE HCL 50 MG/2 ML AMP IM ONE (13:00)
[2021-04-22 16:23] VITALS: BP 112/82
[2021-04-22] MEDS: ZOLPIDEM TARTRATE 10 MG TABLET PO PRN (20:17)
[2021-04-23 05:55] VITALS: BP 112/78
[2021-04-23] MEDS: LEVOTHYROXINE SODIUM 50 MCG TABLET PO SCH (06:13)
[2021-04-23 08:03] LABS: BASOPHILS % (AUTO) 0.1 % (0.0-2.0); EOSINOPHILS % (AUTO) 0 % (1.0-6.0); HEMATOCRIT 42.9 % (41-53); HEMOGLOBIN 14.1 g/dL (13.5-17.5); LYMPHOCYTES # (AUTO) 1.7 K/uL (1.0-4.8); LYMPHOCYTES % (AUTO) 17.5 % (22.0-44.0); MEAN CORPUSCULAR HEMOGLOBIN 29.4 pg (26.0-34.0); MEAN CORPUSCULAR VOLUME 89 fL (80-100); MONOCYTES # (AUTO) 0.6 K/uL (0.1-1.0); MONOCYTES % (AUTO) 6.1 % (2.0-9.0); NEUTROPHILS # (AUTO) 7.4 K/uL (1.8-7.7); NEUTROPHILS % (AUTO) 76.3 % (40.0-70.0); PLATELET COUNT (AUTO) 169 K/uL (150-450); RED BLOOD CELL COUNT(AUTO) 4.81 MIL/uL (4.50-5.90); RED CELL DISTRIBUTION WIDTH 14.3 % (11.5-14.5)
[2021-04-23] MEDS: HALOPERIDOL 5 MG TABLET PO PRN ×2 (08:19→16:02)
[2021-04-23] MEDS: CloZAPine 100 MG TABLET PO SCH ×2 (08:19→20:08)
[2021-04-23] MEDS: LITHIUM CARBONATE 600 MG CAPSULE PO SCH ×2 (08:19→20:08)
[2021-04-23] MEDS: LORazepam 2 MG TABLET PO PRN ×2 (08:19→16:02)
[2021-04-23] MEDS: DIVALPROEX SODIUM 250 MG DR TABLET PO SCH ×2 (08:19→20:08)
[2021-04-23 09:01] VITALS: BP 119/81
[2021-04-23 16:16] VITALS: BP 110/86
[2021-04-24] MEDS: LEVOTHYROXINE SODIUM 50 MCG TABLET PO SCH (06:23)
[2021-04-24 06:30] VITALS: BP 108/66
[2021-04-24] MEDS: DIVALPROEX SODIUM 250 MG DR TABLET PO SCH ×2 (08:04→20:18)
[2021-04-24] MEDS: LITHIUM CARBONATE 600 MG CAPSULE PO SCH ×2 (08:06→20:18)
[2021-04-24] MEDS: CloZAPine 100 MG TABLET PO SCH ×2 (08:06→20:18)
[2021-04-24 08:29] VITALS: BP 110/64
[2021-04-24] MEDS: LORazepam 2 MG TABLET PO PRN (09:17)
[2021-04-24] MEDS ORDERED: LORazepam 2 MG/ML VIAL ONE (13:48)
[2021-04-24] MEDS: HALOPERIDOL 5 MG TABLET PO PRN (13:48)
[2021-04-24] MEDS ORDERED: ChlorproMAZINE HCL 50 MG/2 ML AMP ONE (13:49)
[2021-04-24] MEDS ORDERED: DiphenhydrAMINE HCL 50 MG/ML VIAL ONE (13:49)
[2021-04-24] MEDS ORDERED: ChlorproMAZINE HCL 50 MG/2 ML AMP IM ONE (14:00)
[2021-04-24] MEDS ORDERED: LORazepam 2 MG/ML VIAL IM ONE (14:00)
[2021-04-24] MEDS ORDERED: DiphenhydrAMINE HCL 50 MG/ML VIAL IM ONE (14:00)
[2021-04-24 16:16] VITALS: BP 128/66
[2021-04-24] MEDS: ZOLPIDEM TARTRATE 10 MG TABLET PO PRN (20:18)
[2021-04-25 03:24] VITALS: BP 123/78
[2021-04-25] MEDS: LEVOTHYROXINE SODIUM 50 MCG TABLET PO SCH (06:16)
[2021-04-25] MEDS: DIVALPROEX SODIUM 250 MG DR TABLET PO SCH ×2 (08:02→20:50)
[2021-04-25] MEDS: LITHIUM CARBONATE 600 MG CAPSULE PO SCH ×2 (08:02→20:50)
[2021-04-25] MEDS: CloZAPine 100 MG TABLET PO SCH ×2 (08:02→20:50)
[2021-04-25 08:13] VITALS: BP 140/74
[2021-04-25] MEDS: LORazepam 2 MG TABLET PO PRN ×2 (10:32→16:12)
[2021-04-25] MEDS: HALOPERIDOL 5 MG TABLET PO PRN (16:12)
[2021-04-25 16:24] VITALS: BP 101/68
[2021-04-25] MEDS: ZOLPIDEM TARTRATE 10 MG TABLET PO PRN (20:50)
[2021-04-26 04:55] VITALS: BP 124/62
[2021-04-26] MEDS: LEVOTHYROXINE SODIUM 50 MCG TABLET PO SCH (06:36)
[2021-04-26] MEDS: CloZAPine 100 MG TABLET PO SCH ×2 (08:08→20:47)
[2021-04-26] MEDS: LITHIUM CARBONATE 600 MG CAPSULE PO SCH ×2 (08:08→20:46)
[2021-04-26] MEDS: DIVALPROEX SODIUM 250 MG DR TABLET PO SCH ×2 (08:09→20:47)
[2021-04-26] MEDS: LORazepam 2 MG TABLET PO PRN ×2 (08:13→15:52)
[2021-04-26 08:37] VITALS: BP 108/71
[2021-04-26] MEDS: HALOPERIDOL 5 MG TABLET PO PRN (16:13)
[2021-04-26] MEDS: NICOTINE POLACRILEX 2 MG LOZENGE PO PRN (16:13)
[2021-04-26 16:17] VITALS: BP 129/89
[2021-04-26] MEDS: ZOLPIDEM TARTRATE 10 MG TABLET PO PRN (20:47)
[2021-04-27 05:58] VITALS: BP 120/72
[2021-04-27] MEDS: LEVOTHYROXINE SODIUM 50 MCG TABLET PO SCH (06:10)
[2021-04-27] MEDS: LITHIUM CARBONATE 600 MG CAPSULE PO SCH ×2 (08:19→20:24)
[2021-04-27] MEDS: CloZAPine 100 MG TABLET PO SCH ×2 (08:19→20:24)
[2021-04-27] MEDS: DIVALPROEX SODIUM 250 MG DR TABLET PO SCH ×2 (08:19→20:24)
[2021-04-27] MEDS: LORazepam 2 MG TABLET PO PRN ×3 (08:20→16:44)
[2021-04-27 08:33] VITALS: BP 115/73
[2021-04-27 16:19] VITALS: BP 123/89
[2021-04-27] MEDS: HALOPERIDOL 5 MG TABLET PO PRN (17:13)
[2021-04-27] MEDS: ZOLPIDEM TARTRATE 10 MG TABLET PO PRN (20:24)
[2021-04-28 05:10] VITALS: BP 118/72
[2021-04-28] MEDS: LEVOTHYROXINE SODIUM 50 MCG TABLET PO SCH (07:05)
[2021-04-28] MEDS: CloZAPine 100 MG TABLET PO SCH ×2 (08:16→20:53)
[2021-04-28] MEDS: DIVALPROEX SODIUM 250 MG DR TABLET PO SCH ×2 (08:16→20:53)
[2021-04-28] MEDS: LITHIUM CARBONATE 600 MG CAPSULE PO SCH ×2 (08:16→20:53)
[2021-04-28] MEDS: LORazepam 2 MG TABLET PO PRN ×3 (08:19→16:37)
[2021-04-28 08:43] VITALS: BP 133/75
[2021-04-28] MEDS: NICOTINE POLACRILEX 2 MG LOZENGE PO PRN (09:18)
[2021-04-28 16:18] VITALS: BP 130/72
[2021-04-28] MEDS: HALOPERIDOL 5 MG TABLET PO PRN (17:30)
[2021-04-28] MEDS: ZOLPIDEM TARTRATE 10 MG TABLET PO PRN (20:53)
[2021-04-29 04:51] VITALS: BP 120/71
[2021-04-29] MEDS: LEVOTHYROXINE SODIUM 50 MCG TABLET PO SCH (06:58)
[2021-04-29] MEDS: CloZAPine 100 MG TABLET PO SCH ×2 (08:00→20:59)
[2021-04-29] MEDS: LITHIUM CARBONATE 600 MG CAPSULE PO SCH ×2 (08:00→20:59)
[2021-04-29] MEDS: LORazepam 2 MG TABLET PO PRN ×3 (08:00→17:12)
[2021-04-29] MEDS: DIVALPROEX SODIUM 250 MG DR TABLET PO SCH ×2 (08:00→20:59)
[2021-04-29 08:38] VITALS: BP 120/75
[2021-04-29] MEDS: HALOPERIDOL 5 MG TABLET PO PRN ×2 (13:12→17:12)
[2021-04-29 16:12] VITALS: BP 119/81
[2021-04-29] MEDS: ZOLPIDEM TARTRATE 10 MG TABLET PO PRN (21:01)
[2021-04-30 01:31] VITALS: BP 107/68
[2021-04-30] MEDS: LEVOTHYROXINE SODIUM 50 MCG TABLET PO SCH (06:21)
[2021-04-30 08:26] LABS: EOSINOPHILS % (AUTO) 0 % (1.0-6.0); HEMATOCRIT 41.2 % (41-53); HEMOGLOBIN 13.4 g/dL (13.5-17.5); LYMPHOCYTES # (AUTO) 1.5 K/uL (1.0-4.8); LYMPHOCYTES % (AUTO) 16.6 % (22.0-44.0); MEAN CORPUSCULAR HEMOGLOBIN 29.2 pg (26.0-34.0); MEAN CORPUSCULAR HGB CONC 32.5 G/dL (31.0-37.0); MEAN CORPUSCULAR VOLUME 90 fL (80-100); MONOCYTES # (AUTO) 0.6 K/uL (0.1-1.0); MONOCYTES % (AUTO) 7.1 % (2.0-9.0); NEUTROPHILS # (AUTO) 6.7 K/uL (1.8-7.7); NEUTROPHILS % (AUTO) 76.3 % (40.0-70.0); PLATELET COUNT (AUTO) 193 K/uL (150-450); RED BLOOD CELL COUNT(AUTO) 4.59 MIL/uL (4.50-5.90); RED CELL DISTRIBUTION WIDTH 14.6 % (11.5-14.5)
[2021-04-30 08:27] VITALS: BP 111/60
[2021-04-30] MEDS: DIVALPROEX SODIUM 250 MG DR TABLET PO SCH ×2 (08:35→20:42)
[2021-04-30] MEDS: LITHIUM CARBONATE 600 MG CAPSULE PO SCH ×2 (08:35→20:42)
[2021-04-30] MEDS: CloZAPine 100 MG TABLET PO SCH ×2 (08:36→20:42)
[2021-04-30] MEDS: LORazepam 2 MG TABLET PO PRN ×2 (08:36→16:20)
[2021-04-30] MEDS: HALOPERIDOL 5 MG TABLET PO PRN ×2 (09:09→16:20)
[2021-04-30] MEDS ORDERED: LORazepam 2 MG/ML VIAL ONE (09:33)
[2021-04-30] MEDS ORDERED: ChlorproMAZINE HCL 50 MG/2 ML AMP ONE (09:34)
[2021-04-30] MEDS ORDERED: DiphenhydrAMINE HCL 50 MG/ML VIAL ONE (09:34)
[2021-04-30] MEDS ORDERED: LORazepam 2 MG/ML VIAL IM ONE (10:00)
[2021-04-30] MEDS ORDERED: ChlorproMAZINE HCL 50 MG/2 ML AMP IM ONE (10:00)
[2021-04-30] MEDS ORDERED: DiphenhydrAMINE HCL 50 MG/ML VIAL IM ONE (10:00)
[2021-04-30 16:10] VITALS: BP 131/88
[2021-04-30] MEDS: ZOLPIDEM TARTRATE 10 MG TABLET PO PRN (20:42)
[2021-05-01 01:22] VITALS: BP 102/68
[2021-05-01] MEDS: LEVOTHYROXINE SODIUM 50 MCG TABLET PO SCH (06:08)
[2021-05-01] MEDS: LITHIUM CARBONATE 600 MG CAPSULE PO SCH ×2 (08:18→20:33)
[2021-05-01] MEDS: CloZAPine 100 MG TABLET PO SCH ×2 (08:18→20:34)
[2021-05-01] MEDS: DIVALPROEX SODIUM 250 MG DR TABLET PO SCH ×2 (08:18→20:34)
[2021-05-01 08:36] VITALS: BP 109/73
[2021-05-01] MEDS: LORazepam 2 MG TABLET PO PRN ×2 (10:21→16:10)
[2021-05-01] MEDS: NICOTINE POLACRILEX 2 MG LOZENGE PO PRN (12:45)
[2021-05-01] MEDS: HALOPERIDOL 5 MG TABLET PO PRN (16:10)
[2021-05-01 16:13] VITALS: BP 101/68
[2021-05-01] MEDS: ZOLPIDEM TARTRATE 10 MG TABLET PO PRN (20:34)
[2021-05-02 00:09] VITALS: BP 110/68
[2021-05-02] MEDS: LEVOTHYROXINE SODIUM 50 MCG TABLET PO SCH (06:45)
[2021-05-02] MEDS: LITHIUM CARBONATE 600 MG CAPSULE PO SCH ×2 (07:59→20:22)
[2021-05-02] MEDS: DIVALPROEX SODIUM 250 MG DR TABLET PO SCH ×2 (08:00→20:22)
[2021-05-02] MEDS: CloZAPine 100 MG TABLET PO SCH ×2 (08:00→20:22)
[2021-05-02 08:09] VITALS: BP 104/74
[2021-05-02] MEDS: LORazepam 2 MG TABLET PO PRN ×2 (15:07→20:22)
[2021-05-02] MEDS: HALOPERIDOL 5 MG TABLET PO PRN (16:12)
[2021-05-02 16:14] VITALS: BP 105/71
[2021-05-02] MEDS: ZOLPIDEM TARTRATE 10 MG TABLET PO PRN (20:22)
[2021-05-03 00:14] VITALS: BP 110/68
[2021-05-03] MEDS: LEVOTHYROXINE SODIUM 50 MCG TABLET PO SCH (06:36)
[2021-05-03 08:18] VITALS: BP 139/76
[2021-05-03] MEDS: CloZAPine 100 MG TABLET PO SCH ×2 (08:48→20:41)
[2021-05-03] MEDS: LITHIUM CARBONATE 600 MG CAPSULE PO SCH ×2 (08:48→20:42)
[2021-05-03] MEDS: DIVALPROEX SODIUM 250 MG DR TABLET PO SCH ×2 (08:48→20:42)
[2021-05-03] MEDS: LORazepam 2 MG TABLET PO PRN ×3 (09:47→20:46)
[2021-05-03] MEDS: HALOPERIDOL 5 MG TABLET PO PRN (15:49)
[2021-05-03 16:10] VITALS: BP 118/78
[2021-05-03] MEDS: ZOLPIDEM TARTRATE 10 MG TABLET PO PRN (20:42)
[2021-05-04 00:21] VITALS: BP 116/66
[2021-05-04] MEDS: LEVOTHYROXINE SODIUM 50 MCG TABLET PO SCH (06:26)
[2021-05-04] MEDS: LITHIUM CARBONATE 600 MG CAPSULE PO SCH ×2 (08:01→20:21)
[2021-05-04] MEDS: CloZAPine 100 MG TABLET PO SCH ×2 (08:01→20:21)
[2021-05-04] MEDS: DIVALPROEX SODIUM 250 MG DR TABLET PO SCH ×2 (08:01→20:21)
[2021-05-04] MEDS: LORazepam 2 MG TABLET PO PRN ×3 (08:02→20:21)
[2021-05-04] MEDS: HALOPERIDOL 5 MG TABLET PO PRN (08:02)
[2021-05-04 11:12] VITALS: BP 108/71
[2021-05-04 16:18] VITALS: BP 115/77
[2021-05-05 00:30] VITALS: BP 112/68
[2021-05-05] MEDS: LEVOTHYROXINE SODIUM 50 MCG TABLET PO SCH (06:57)
[2021-05-05 08:20] VITALS: BP 114/76
[2021-05-05] MEDS: LITHIUM CARBONATE 600 MG CAPSULE PO SCH ×2 (08:24→20:55)
[2021-05-05] MEDS: DIVALPROEX SODIUM 250 MG DR TABLET PO SCH ×2 (08:25→20:55)
[2021-05-05] MEDS: CloZAPine 100 MG TABLET PO SCH ×2 (08:26→20:55)
[2021-05-05 09:21] LABS: GLUCOMETER DEV NAME(LOC) POC.BV
[2021-05-05] MEDS: LORazepam 2 MG TABLET PO PRN ×2 (11:10→16:26)
[2021-05-05 16:22] VITALS: BP 135/86
[2021-05-05] MEDS: HALOPERIDOL 5 MG TABLET PO PRN (17:23)
[2021-05-05] MEDS: ZOLPIDEM TARTRATE 10 MG TABLET PO PRN (20:55)
[2021-05-06 00:36] VITALS: BP 126/81
[2021-05-06] MEDS: LEVOTHYROXINE SODIUM 50 MCG TABLET PO SCH (06:15)
[2021-05-06] MEDS: CloZAPine 100 MG TABLET PO SCH ×2 (08:08→20:47)
[2021-05-06] MEDS: LITHIUM CARBONATE 600 MG CAPSULE PO SCH ×2 (08:09→20:47)
[2021-05-06] MEDS: DIVALPROEX SODIUM 250 MG DR TABLET PO SCH ×2 (08:09→20:48)
[2021-05-06 08:23] VITALS: BP 116/66
[2021-05-06] MEDS: LORazepam 2 MG TABLET PO PRN ×2 (10:35→17:03)
[2021-05-06 16:34] VITALS: BP 109/73
[2021-05-06] MEDS: HALOPERIDOL 5 MG TABLET PO PRN (17:03)
[2021-05-06] MEDS: ZOLPIDEM TARTRATE 10 MG TABLET PO PRN (20:48)
[2021-05-07 04:08] VITALS: BP 103/66
[2021-05-07] MEDS: LEVOTHYROXINE SODIUM 50 MCG TABLET PO SCH (06:23)
[2021-05-07 08:34] VITALS: BP 119/81
[2021-05-07] MEDS: LITHIUM CARBONATE 600 MG CAPSULE PO SCH ×2 (09:27→20:02)
[2021-05-07] MEDS: CloZAPine 100 MG TABLET PO SCH ×2 (09:27→20:02)
[2021-05-07] MEDS: DIVALPROEX SODIUM 250 MG DR TABLET PO SCH ×2 (09:28→20:02)
[2021-05-07] MEDS: LORazepam 2 MG TABLET PO PRN ×2 (11:22→21:20)
[2021-05-07 16:13] VITALS: BP 118/75
[2021-05-07] MEDS: HALOPERIDOL 5 MG TABLET PO PRN (21:20)
[2021-05-07] MEDS: ZOLPIDEM TARTRATE 10 MG TABLET PO PRN (21:20)
[2021-05-08] MEDS: LEVOTHYROXINE SODIUM 50 MCG TABLET PO SCH (06:23)
[2021-05-08 08:22] LABS: BASOPHILS % (AUTO) 0.2 % (0.0-2.0); EOSINOPHILS % (AUTO) 0 % (1.0-6.0); HEMATOCRIT 46.1 % (41-53); LYMPHOCYTES % (AUTO) 20.8 % (22.0-44.0); MEAN CORPUSCULAR HEMOGLOBIN 29.4 pg (26.0-34.0); MEAN CORPUSCULAR HGB CONC 32.5 G/dL (31.0-37.0); MEAN CORPUSCULAR VOLUME 91 fL (80-100); MONOCYTES # (AUTO) 0.6 K/uL (0.1-1.0); MONOCYTES % (AUTO) 6.3 % (2.0-9.0); NEUTROPHILS # (AUTO) 6.9 K/uL (1.8-7.7); NEUTROPHILS % (AUTO) 72.7 % (40.0-70.0); RED BLOOD CELL COUNT(AUTO) 5.09 MIL/uL (4.50-5.90); RED CELL DISTRIBUTION WIDTH 14.4 % (11.5-14.5)
[2021-05-08 08:24] VITALS: BP 122/76
[2021-05-08] MEDS: LITHIUM CARBONATE 600 MG CAPSULE PO SCH ×2 (08:27→20:42)
[2021-05-08] MEDS: CloZAPine 100 MG TABLET PO SCH ×2 (08:27→20:42)
[2021-05-08] MEDS: DIVALPROEX SODIUM 250 MG DR TABLET PO SCH ×2 (08:27→20:43)
[2021-05-08] MEDS: LORazepam 2 MG TABLET PO PRN ×2 (08:28→20:43)
[2021-05-08 08:48] LABS: PLATELET COUNT (AUTO) 177 K/uL (150-450)
[2021-05-08 09:14] LABS: GLUCOMETER DEV NAME(LOC) POC.BV
[2021-05-08] MEDS: HALOPERIDOL 5 MG TABLET PO PRN (16:31)
[2021-05-08 16:34] VITALS: BP 117/79
[2021-05-08] MEDS: ZOLPIDEM TARTRATE 10 MG TABLET PO PRN (20:43)
[2021-05-09 06:14] VITALS: BP 111/61
[2021-05-09] MEDS: LEVOTHYROXINE SODIUM 50 MCG TABLET PO SCH (06:15)
[2021-05-09] MEDS: LITHIUM CARBONATE 600 MG CAPSULE PO SCH ×2 (08:20→20:48)
[2021-05-09] MEDS: DIVALPROEX SODIUM 250 MG DR TABLET PO SCH ×2 (08:20→20:48)
[2021-05-09] MEDS: CloZAPine 100 MG TABLET PO SCH ×2 (08:21→20:48)
[2021-05-09 08:24] VITALS: BP 127/70
[2021-05-09] MEDS: LORazepam 2 MG TABLET PO PRN (09:28)
[2021-05-09] MEDS ORDERED: DiphenhydrAMINE HCL 50 MG/ML VIAL ONE (09:57)
[2021-05-09] MEDS ORDERED: HALOPERIDOL LACTATE 5 MG/ML VIAL ONE (09:57)
[2021-05-09] MEDS ORDERED: LORazepam 2 MG/ML VIAL ONE (09:57)
[2021-05-09] MEDS ORDERED: LORazepam 2 MG/ML VIAL IM ONE (10:15)
[2021-05-09] MEDS ORDERED: DiphenhydrAMINE HCL 50 MG/ML VIAL IM ONE (10:15)
[2021-05-09] MEDS ORDERED: HALOPERIDOL LACTATE 5 MG/ML VIAL IM ONE (10:15)
[2021-05-09 16:50] VITALS: BP 125/77
[2021-05-09] MEDS: ZOLPIDEM TARTRATE 10 MG TABLET PO PRN (20:48)
[2021-05-10 04:08] VITALS: BP 132/68
[2021-05-10] MEDS: LEVOTHYROXINE SODIUM 50 MCG TABLET PO SCH (06:11)
[2021-05-10] MEDS: LITHIUM CARBONATE 600 MG CAPSULE PO SCH ×2 (07:49→20:56)
[2021-05-10] MEDS: CloZAPine 100 MG TABLET PO SCH ×2 (07:49→20:56)
[2021-05-10] MEDS: DIVALPROEX SODIUM 250 MG DR TABLET PO SCH ×2 (07:49→20:56)
[2021-05-10 08:41] VITALS: BP 128/90
[2021-05-10] MEDS: LORazepam 2 MG TABLET PO PRN (11:26)
[2021-05-10 16:15] VITALS: BP 112/77
[2021-05-11 00:59] VITALS: BP 114/70
[2021-05-11] MEDS: LEVOTHYROXINE SODIUM 50 MCG TABLET PO SCH (06:14)
[2021-05-11] MEDS: LITHIUM CARBONATE 600 MG CAPSULE PO SCH ×2 (08:22→21:04)
[2021-05-11] MEDS: DIVALPROEX SODIUM 250 MG DR TABLET PO SCH ×2 (08:22→21:05)
[2021-05-11] MEDS: CloZAPine 100 MG TABLET PO SCH ×2 (08:22→21:05)
[2021-05-11] MEDS: LORazepam 2 MG TABLET PO PRN ×2 (08:23→16:16)
[2021-05-11 08:38] VITALS: BP 109/75
[2021-05-11 16:12] VITALS: BP 118/84
[2021-05-11] MEDS: HALOPERIDOL 5 MG TABLET PO PRN (16:16)
[2021-05-11] MEDS: ZOLPIDEM TARTRATE 10 MG TABLET PO PRN (21:05)
[2021-05-12 06:02] VITALS: BP 116/62
[2021-05-12] MEDS: LEVOTHYROXINE SODIUM 50 MCG TABLET PO SCH (06:34)
[2021-05-12] MEDS: LITHIUM CARBONATE 600 MG CAPSULE PO SCH ×2 (08:29→20:25)
[2021-05-12] MEDS: DIVALPROEX SODIUM 250 MG DR TABLET PO SCH ×2 (08:29→20:25)
[2021-05-12] MEDS: CloZAPine 100 MG TABLET PO SCH ×2 (08:29→20:24)
[2021-05-12 09:37] VITALS: BP 127/72
[2021-05-12] MEDS: NICOTINE POLACRILEX 2 MG LOZENGE PO PRN (11:54)
[2021-05-12 16:35] VITALS: BP 120/71
[2021-05-13 04:48] VITALS: BP 116/70
[2021-05-13] MEDS: LEVOTHYROXINE SODIUM 50 MCG TABLET PO SCH (07:01)
[2021-05-13 08:31] VITALS: BP 139/67
[2021-05-13] MEDS: LITHIUM CARBONATE 600 MG CAPSULE PO SCH ×2 (08:54→20:26)
[2021-05-13] MEDS: CloZAPine 100 MG TABLET PO SCH ×2 (08:54→20:26)
[2021-05-13] MEDS: DIVALPROEX SODIUM 250 MG DR TABLET PO SCH ×2 (08:54→20:27)
[2021-05-13] MEDS: HALOPERIDOL 5 MG TABLET PO PRN (10:31)
[2021-05-13] MEDS: LORazepam 2 MG TABLET PO PRN ×2 (10:31→17:36)
[2021-05-13 16:22] VITALS: BP 112/67
[2021-05-14 05:37] VITALS: BP 107/61
[2021-05-14] MEDS: LEVOTHYROXINE SODIUM 50 MCG TABLET PO SCH (06:19)
[2021-05-14 07:57] LABS: EOSINOPHILS % (AUTO) 0.1 % (1.0-6.0); HEMATOCRIT 43.3 % (41-53); HEMOGLOBIN 14.2 g/dL (13.5-17.5); LYMPHOCYTES # (AUTO) 1.8 K/uL (1.0-4.8); LYMPHOCYTES % (AUTO) 20.1 % (22.0-44.0); MEAN CORPUSCULAR HEMOGLOBIN 29.5 pg (26.0-34.0); MEAN CORPUSCULAR HGB CONC 32.9 G/dL (31.0-37.0); MEAN CORPUSCULAR VOLUME 90 fL (80-100); MONOCYTES # (AUTO) 0.6 K/uL (0.1-1.0); MONOCYTES % (AUTO) 6.7 % (2.0-9.0); NEUTROPHILS # (AUTO) 6.5 K/uL (1.8-7.7); NEUTROPHILS % (AUTO) 73.1 % (40.0-70.0); PLATELET COUNT (AUTO) 199 K/uL (150-450); RED BLOOD CELL COUNT(AUTO) 4.83 MIL/uL (4.50-5.90); RED CELL DISTRIBUTION WIDTH 14.7 % (11.5-14.5)
[2021-05-14] MEDS: DIVALPROEX SODIUM 250 MG DR TABLET PO SCH ×2 (08:40→20:28)
[2021-05-14] MEDS: CloZAPine 100 MG TABLET PO SCH ×2 (08:41→20:28)
[2021-05-14] MEDS: LITHIUM CARBONATE 600 MG CAPSULE PO SCH ×2 (08:41→20:28)
[2021-05-14 08:47] VITALS: BP 137/98
[2021-05-14 10:29] LABS: COVID AG,FIA SOURCE NASAL SWAB
[2021-05-14] MEDS: LORazepam 2 MG TABLET PO PRN (11:13)
[2021-05-14] MEDS: NICOTINE POLACRILEX 2 MG LOZENGE PO PRN (12:57)
[2021-05-14] MEDS: HALOPERIDOL 5 MG TABLET PO PRN (12:57)
[2021-05-14 16:05] VITALS: BP 137/92
[2021-05-14] MEDS: ZOLPIDEM TARTRATE 10 MG TABLET PO PRN (20:28)
[2021-05-15] MEDS: LEVOTHYROXINE SODIUM 50 MCG TABLET PO SCH (06:09)
[2021-05-15 06:15] VITALS: BP 90/55
[2021-05-15] MEDS: DIVALPROEX SODIUM 250 MG DR TABLET PO SCH ×2 (07:57→21:16)
[2021-05-15] MEDS: LITHIUM CARBONATE 600 MG CAPSULE PO SCH ×2 (07:58→21:16)
[2021-05-15] MEDS: CloZAPine 100 MG TABLET PO SCH ×2 (07:58→21:16)
[2021-05-15 08:18] VITALS: BP 121/69
[2021-05-15] MEDS: NICOTINE POLACRILEX 2 MG LOZENGE PO PRN (14:54)
[2021-05-15 16:24] VITALS: BP 125/79
[2021-05-15] MEDS: LORazepam 2 MG TABLET PO PRN (16:33)
[2021-05-16] MEDS: LEVOTHYROXINE SODIUM 50 MCG TABLET PO SCH (06:18)
[2021-05-16 06:54] LABS: ANION GAP 3 mmol/L (8-16); CALCIUM, TOTAL 9.5 mg/dL (8.8-10.5); CARBON DIOXIDE 31 mmol/L (22-29); CHLORIDE 111 mmol/L (98-107); CREATININE 0.89 mg/dL (0.60-1.30); GLOMERULAR FILTR. RATE CALC > 60 mL/min (>60); GLUCOSE,RANDOM 97 mg/dL (70-110); POTASSIUM 4.9 mmol/L (3.5-5.1); SODIUM SERUM 145 mmol/L (136-145); UREA NITROGEN, BLOOD 14 mg/dL (7-18)
[2021-05-16] MEDS: DIVALPROEX SODIUM 250 MG DR TABLET PO SCH ×2 (08:11→20:47)
[2021-05-16] MEDS: CloZAPine 100 MG TABLET PO SCH ×2 (08:11→20:47)
[2021-05-16] MEDS: LITHIUM CARBONATE 600 MG CAPSULE PO SCH ×2 (08:11→20:47)
[2021-05-16 08:18] VITALS: BP 110/67
[2021-05-16] MEDS: LORazepam 2 MG TABLET PO PRN (16:19)
[2021-05-16 16:27] VITALS: BP 102/63
[2021-05-17 04:16] LABS: GLUCOMETER DEV NAME(LOC) POC.BV
[2021-05-17 06:15] VITALS: BP 101/59
[2021-05-17] MEDS: LEVOTHYROXINE SODIUM 50 MCG TABLET PO SCH (06:35)
[2021-05-17] MEDS: CloZAPine 100 MG TABLET PO SCH ×2 (08:00→20:48)
[2021-05-17] MEDS: LITHIUM CARBONATE 600 MG CAPSULE PO SCH ×2 (08:00→20:48)
[2021-05-17] MEDS: DIVALPROEX SODIUM 250 MG DR TABLET PO SCH ×2 (08:00→20:48)
[2021-05-17] MEDS: LORazepam 2 MG TABLET PO PRN ×2 (09:00→18:40)
[2021-05-17 09:07] VITALS: BP 121/71
[2021-05-17 16:13] VITALS: BP 126/81
[2021-05-17] MEDS: HALOPERIDOL 5 MG TABLET PO PRN (18:40)
[2021-05-17] MEDS: ZOLPIDEM TARTRATE 10 MG TABLET PO PRN (20:48)
[2021-05-18] MEDS: LEVOTHYROXINE SODIUM 50 MCG TABLET PO SCH (06:34)
[2021-05-18] MEDS: LITHIUM CARBONATE 600 MG CAPSULE PO SCH ×2 (08:38→20:04)
[2021-05-18] MEDS: DIVALPROEX SODIUM 250 MG DR TABLET PO SCH ×2 (08:38→20:04)
[2021-05-18] MEDS: CloZAPine 100 MG TABLET PO SCH ×2 (08:38→20:04)
[2021-05-18 09:50] VITALS: BP 121/80
[2021-05-18] MEDS: LORazepam 2 MG TABLET PO PRN ×2 (12:15→20:18)
[2021-05-18 16:11] VITALS: BP 118/68
[2021-05-18] MEDS: NICOTINE POLACRILEX 2 MG LOZENGE PO PRN (18:24)
[2021-05-18] MEDS: HALOPERIDOL 5 MG TABLET PO PRN (20:18)
[2021-05-19 00:34] VITALS: BP 120/68
[2021-05-19] MEDS: LEVOTHYROXINE SODIUM 50 MCG TABLET PO SCH (06:25)
[2021-05-19] MEDS: CloZAPine 100 MG TABLET PO SCH ×2 (08:36→21:00)
[2021-05-19] MEDS: LITHIUM CARBONATE 600 MG CAPSULE PO SCH ×2 (08:37→21:00)
[2021-05-19] MEDS: DIVALPROEX SODIUM 250 MG DR TABLET PO SCH ×2 (08:37→21:00)
[2021-05-19 09:21] VITALS: BP 122/67
[2021-05-19] MEDS: LORazepam 2 MG TABLET PO PRN ×2 (13:06→17:32)
[2021-05-19 16:44] VITALS: BP 124/81
[2021-05-19] MEDS: HALOPERIDOL 5 MG TABLET PO PRN (17:32)
[2021-05-19] MEDS: ZOLPIDEM TARTRATE 10 MG TABLET PO PRN (21:00)
[2021-05-20] MEDS: LEVOTHYROXINE SODIUM 50 MCG TABLET PO SCH (06:21)
[2021-05-20 06:33] VITALS: BP 125/83
[2021-05-20] MEDS: LITHIUM CARBONATE 600 MG CAPSULE PO SCH ×2 (08:01→20:41)
[2021-05-20] MEDS: DIVALPROEX SODIUM 250 MG DR TABLET PO SCH ×2 (08:01→20:41)
[2021-05-20] MEDS: CloZAPine 100 MG TABLET PO SCH ×2 (08:01→20:41)
[2021-05-20 08:18] VITALS: BP 116/79
[2021-05-20] MEDS: LORazepam 2 MG TABLET PO PRN ×2 (12:25→18:27)
[2021-05-20 16:12] VITALS: BP 133/86
[2021-05-20] MEDS: ZOLPIDEM TARTRATE 10 MG TABLET PO PRN (20:41)
[2021-05-21 03:10] VITALS: BP 114/62
[2021-05-21] MEDS: LEVOTHYROXINE SODIUM 50 MCG TABLET PO SCH (06:22)
[2021-05-21 08:14] VITALS: BP 121/60
[2021-05-21] MEDS: DIVALPROEX SODIUM 250 MG DR TABLET PO SCH ×2 (08:29→20:11)
[2021-05-21] MEDS: LORazepam 2 MG TABLET PO PRN ×3 (08:29→18:17)
[2021-05-21] MEDS: LITHIUM CARBONATE 600 MG CAPSULE PO SCH ×2 (08:29→20:11)
[2021-05-21] MEDS: CloZAPine 100 MG TABLET PO SCH ×2 (08:29→20:11)
[2021-05-21 16:29] VITALS: BP 130/90
[2021-05-21] MEDS: NICOTINE POLACRILEX 2 MG LOZENGE PO PRN (17:54)
[2021-05-21] MEDS: HALOPERIDOL 5 MG TABLET PO PRN (18:17)
[2021-05-22] MEDS: LEVOTHYROXINE SODIUM 50 MCG TABLET PO SCH (06:22)
[2021-05-22 06:34] VITALS: BP 116/60
[2021-05-22 08:00] LABS: EOSINOPHILS % (AUTO) 0 % (1.0-6.0); HEMOGLOBIN 14.2 g/dL (13.5-17.5); LYMPHOCYTES # (AUTO) 1.9 K/uL (1.0-4.8); LYMPHOCYTES % (AUTO) 22.2 % (22.0-44.0); MEAN CORPUSCULAR HEMOGLOBIN 29.7 pg (26.0-34.0); MEAN CORPUSCULAR HGB CONC 33.1 G/dL (31.0-37.0); MEAN CORPUSCULAR VOLUME 90 fL (80-100); MONOCYTES # (AUTO) 0.5 K/uL (0.1-1.0); MONOCYTES % (AUTO) 6.3 % (2.0-9.0); NEUTROPHILS # (AUTO) 6.1 K/uL (1.8-7.7); NEUTROPHILS % (AUTO) 71.5 % (40.0-70.0); PLATELET COUNT (AUTO) 167 K/uL (150-450); RED BLOOD CELL COUNT(AUTO) 4.79 MIL/uL (4.50-5.90); RED CELL DISTRIBUTION WIDTH 14.7 % (11.5-14.5)
[2021-05-22 08:35] VITALS: BP 125/87
[2021-05-22] MEDS: LITHIUM CARBONATE 600 MG CAPSULE PO SCH ×2 (09:05→20:48)
[2021-05-22] MEDS: DIVALPROEX SODIUM 250 MG DR TABLET PO SCH ×2 (09:05→20:48)
[2021-05-22] MEDS: CloZAPine 100 MG TABLET PO SCH ×2 (09:05→20:48)
[2021-05-22 16:13] VITALS: BP 110/70
[2021-05-22] MEDS: LORazepam 2 MG TABLET PO PRN (16:56)
[2021-05-22] MEDS: HALOPERIDOL 5 MG TABLET PO PRN (16:56)
[2021-05-22] MEDS: ZOLPIDEM TARTRATE 10 MG TABLET PO PRN (20:48)
[2021-05-23] MEDS: LEVOTHYROXINE SODIUM 50 MCG TABLET PO SCH (06:19)
[2021-05-23 08:13] VITALS: BP 111/65
[2021-05-23] MEDS: LITHIUM CARBONATE 600 MG CAPSULE PO SCH ×2 (08:17→20:56)
[2021-05-23] MEDS: DIVALPROEX SODIUM 250 MG DR TABLET PO SCH ×2 (08:17→20:55)
[2021-05-23] MEDS: CloZAPine 100 MG TABLET PO SCH ×2 (08:17→20:56)
[2021-05-23] MEDS: LORazepam 2 MG TABLET PO PRN ×2 (10:24→16:09)
[2021-05-23 16:14] VITALS: BP 142/89
[2021-05-23] MEDS: ZOLPIDEM TARTRATE 10 MG TABLET PO PRN (20:56)
[2021-05-24 04:00] VITALS: BP 136/84
[2021-05-24] MEDS: LEVOTHYROXINE SODIUM 50 MCG TABLET PO SCH (06:13)
[2021-05-24] MEDS: DIVALPROEX SODIUM 250 MG DR TABLET PO SCH ×2 (08:42→20:51)
[2021-05-24] MEDS: LITHIUM CARBONATE 600 MG CAPSULE PO SCH ×2 (08:42→20:51)
[2021-05-24] MEDS: CloZAPine 100 MG TABLET PO SCH ×2 (08:43→20:51)
[2021-05-24 08:46] VITALS: BP 120/70
[2021-05-24] MEDS: LORazepam 2 MG TABLET PO PRN (11:01)
[2021-05-24 16:15] VITALS: BP 158/81
[2021-05-24] MEDS: ZOLPIDEM TARTRATE 10 MG TABLET PO PRN (20:51)
[2021-05-25] MEDS: LEVOTHYROXINE SODIUM 50 MCG TABLET PO SCH (06:29)
[2021-05-25 06:44] VITALS: BP 123/78
[2021-05-25 07:57] VITALS: BP 107/68
[2021-05-25] MEDS: LITHIUM CARBONATE 600 MG CAPSULE PO SCH ×2 (08:09→20:26)
[2021-05-25] MEDS: DIVALPROEX SODIUM 250 MG DR TABLET PO SCH ×2 (08:09→20:26)
[2021-05-25] MEDS: CloZAPine 100 MG TABLET PO SCH ×2 (08:09→20:26)
[2021-05-25] MEDS: LORazepam 2 MG TABLET PO PRN ×3 (08:10→20:26)
[2021-05-25 13:10] VITALS: BP 107/68
[2021-05-25] MEDS: HALOPERIDOL 5 MG TABLET PO PRN (14:58)
[2021-05-25 16:10] VITALS: BP 124/84
[2021-05-26 04:54] VITALS: BP 120/76
[2021-05-26] MEDS: LEVOTHYROXINE SODIUM 50 MCG TABLET PO SCH (06:43)
[2021-05-26 08:05] VITALS: BP 100/60
[2021-05-26] MEDS: CloZAPine 100 MG TABLET PO SCH ×2 (08:22→20:23)
[2021-05-26] MEDS: DIVALPROEX SODIUM 250 MG DR TABLET PO SCH ×2 (08:22→20:23)
[2021-05-26] MEDS: LITHIUM CARBONATE 600 MG CAPSULE PO SCH ×2 (08:22→20:23)
[2021-05-26] MEDS: LORazepam 2 MG TABLET PO PRN (10:51)
[2021-05-26 16:09] VITALS: BP 152/71
[2021-05-26 17:00] VITALS: BP 120/80
[2021-05-27 04:22] VITALS: BP 124/80
[2021-05-27] MEDS: LEVOTHYROXINE SODIUM 50 MCG TABLET PO SCH (06:40)
[2021-05-27 08:56] VITALS: BP 111/70
[2021-05-27] MEDS: DIVALPROEX SODIUM 250 MG DR TABLET PO SCH ×2 (08:57→20:10)
[2021-05-27] MEDS: LITHIUM CARBONATE 600 MG CAPSULE PO SCH ×2 (08:57→20:10)
[2021-05-27] MEDS: CloZAPine 100 MG TABLET PO SCH ×2 (08:58→20:10)
[2021-05-27 16:11] VITALS: BP 113/76
[2021-05-27] MEDS: ZOLPIDEM TARTRATE 10 MG TABLET PO PRN (20:10)
[2021-05-28 01:28] VITALS: BP 113/66
[2021-05-28] MEDS: LEVOTHYROXINE SODIUM 50 MCG TABLET PO SCH (06:19)
[2021-05-28 08:16] VITALS: BP 112/68
[2021-05-28] MEDS: DIVALPROEX SODIUM 250 MG DR TABLET PO SCH ×2 (08:24→22:03)
[2021-05-28] MEDS: LITHIUM CARBONATE 600 MG CAPSULE PO SCH ×2 (08:24→22:03)
[2021-05-28] MEDS: CloZAPine 100 MG TABLET PO SCH ×2 (08:24→22:04)
[2021-05-28 16:10] VITALS: BP 105/82
[2021-05-29 04:15] VITALS: BP 104/73
[2021-05-29] MEDS: LEVOTHYROXINE SODIUM 50 MCG TABLET PO SCH (06:10)
[2021-05-29 07:22] LABS: BASOPHILS % (AUTO) 0.1 % (0.0-2.0); EOSINOPHILS % (AUTO) 0 % (1.0-6.0); HEMATOCRIT 43.3 % (41-53); HEMOGLOBIN 14.3 g/dL (13.5-17.5); LYMPHOCYTES # (AUTO) 1.6 K/uL (1.0-4.8); LYMPHOCYTES % (AUTO) 20.5 % (22.0-44.0); MEAN CORPUSCULAR HEMOGLOBIN 29.5 pg (26.0-34.0); MEAN CORPUSCULAR VOLUME 90 fL (80-100); MONOCYTES # (AUTO) 0.5 K/uL (0.1-1.0); MONOCYTES % (AUTO) 6.7 % (2.0-9.0); NEUTROPHILS # (AUTO) 5.8 K/uL (1.8-7.7); NEUTROPHILS % (AUTO) 72.7 % (40.0-70.0); PLATELET COUNT (AUTO) 161 K/uL (150-450); RED BLOOD CELL COUNT(AUTO) 4.84 MIL/uL (4.50-5.90); RED CELL DISTRIBUTION WIDTH 14.6 % (11.5-14.5)
[2021-05-29 08:24] VITALS: BP 121/72
[2021-05-29] MEDS: DIVALPROEX SODIUM 250 MG DR TABLET PO SCH ×2 (08:45→20:35)
[2021-05-29] MEDS: LITHIUM CARBONATE 600 MG CAPSULE PO SCH ×2 (08:45→20:35)
[2021-05-29] MEDS: CloZAPine 100 MG TABLET PO SCH ×2 (08:45→20:35)
[2021-05-29] MEDS: LORazepam 2 MG TABLET PO PRN (09:23)
[2021-05-29 16:12] VITALS: BP 138/86
[2021-05-30 05:34] VITALS: BP 110/68
[2021-05-30] MEDS: LEVOTHYROXINE SODIUM 50 MCG TABLET PO SCH (06:24)
[2021-05-30 08:17] VITALS: BP 124/55
[2021-05-30] MEDS: LITHIUM CARBONATE 600 MG CAPSULE PO SCH ×2 (08:32→20:56)
[2021-05-30] MEDS: DIVALPROEX SODIUM 250 MG DR TABLET PO SCH ×2 (08:33→20:56)
[2021-05-30] MEDS: CloZAPine 100 MG TABLET PO SCH ×2 (08:33→20:56)
[2021-05-30] MEDS: NICOTINE POLACRILEX 2 MG LOZENGE PO PRN (11:45)
[2021-05-30] MEDS: LORazepam 2 MG TABLET PO PRN (15:20)
[2021-05-30 16:12] VITALS: BP 130/86
[2021-05-31 06:20] VITALS: BP 128/80
[2021-05-31] MEDS: LEVOTHYROXINE SODIUM 50 MCG TABLET PO SCH (06:22)
[2021-05-31] MEDS: CloZAPine 100 MG TABLET PO SCH ×2 (08:18→20:39)
[2021-05-31] MEDS: DIVALPROEX SODIUM 250 MG DR TABLET PO SCH ×2 (08:18→20:39)
[2021-05-31] MEDS: LITHIUM CARBONATE 600 MG CAPSULE PO SCH ×2 (08:18→20:39)
[2021-05-31 08:20] VITALS: BP 110/72
[2021-05-31] MEDS: LORazepam 2 MG TABLET PO PRN (12:25)
[2021-05-31] MEDS: NICOTINE POLACRILEX 2 MG LOZENGE PO PRN (12:32)
[2021-05-31 16:11] VITALS: BP 112/72
[2021-06-01 01:09] VITALS: BP 120/61
[2021-06-01] MEDS: LEVOTHYROXINE SODIUM 50 MCG TABLET PO SCH (06:24)
[2021-06-01 07:39] LABS: EOSINOPHILS % (AUTO) 0 % (1.0-6.0); HEMATOCRIT 41.8 % (41-53); LYMPHOCYTES # (AUTO) 1.9 K/uL (1.0-4.8); LYMPHOCYTES % (AUTO) 27.5 % (22.0-44.0); MEAN CORPUSCULAR HEMOGLOBIN 29.9 pg (26.0-34.0); MEAN CORPUSCULAR HGB CONC 33.4 G/dL (31.0-37.0); MEAN CORPUSCULAR VOLUME 89 fL (80-100); MONOCYTES # (AUTO) 0.5 K/uL (0.1-1.0); NEUTROPHILS # (AUTO) 4.5 K/uL (1.8-7.7); NEUTROPHILS % (AUTO) 65.5 % (40.0-70.0); PLATELET COUNT (AUTO) 161 K/uL (150-450); RED BLOOD CELL COUNT(AUTO) 4.67 MIL/uL (4.50-5.90); RED CELL DISTRIBUTION WIDTH 14.1 % (11.5-14.5)
[2021-06-01] MEDS: CloZAPine 100 MG TABLET PO SCH ×2 (08:34→20:01)
[2021-06-01] MEDS: DIVALPROEX SODIUM 250 MG DR TABLET PO SCH ×2 (08:34→20:01)
[2021-06-01] MEDS: LITHIUM CARBONATE 600 MG CAPSULE PO SCH ×2 (08:34→20:01)
[2021-06-01 14:30] VITALS: BP 131/74
[2021-06-01 16:32] VITALS: BP 129/86
[2021-06-01] MEDS: LORazepam 2 MG TABLET PO PRN (16:42)
[2021-06-01] MEDS: NICOTINE POLACRILEX 2 MG LOZENGE PO PRN (16:42)
[2021-06-01] MEDS: ZOLPIDEM TARTRATE 10 MG TABLET PO PRN (20:01)
[2021-06-02 06:23] VITALS: BP 125/82
[2021-06-02] MEDS: LEVOTHYROXINE SODIUM 50 MCG TABLET PO SCH (06:39)
[2021-06-02 08:21] VITALS: BP 104/60
[2021-06-02] MEDS: DIVALPROEX SODIUM 250 MG DR TABLET PO SCH ×2 (09:04→21:37)
[2021-06-02] MEDS: LITHIUM CARBONATE 600 MG CAPSULE PO SCH ×2 (09:04→21:36)
[2021-06-02] MEDS: CloZAPine 100 MG TABLET PO SCH ×2 (09:05→21:37)
[2021-06-02] MEDS: LORazepam 2 MG TABLET PO PRN ×2 (10:46→15:14)
[2021-06-02 16:16] VITALS: BP 119/80
[2021-06-03 06:13] VITALS: BP 109/78
[2021-06-03] MEDS: LEVOTHYROXINE SODIUM 50 MCG TABLET PO SCH (06:19)
[2021-06-03] MEDS: CloZAPine 100 MG TABLET PO SCH ×2 (08:10→20:39)
[2021-06-03] MEDS: LITHIUM CARBONATE 600 MG CAPSULE PO SCH ×2 (08:10→20:39)
[2021-06-03] MEDS: DIVALPROEX SODIUM 250 MG DR TABLET PO SCH ×2 (08:11→20:39)
[2021-06-03] MEDS: LORazepam 2 MG TABLET PO PRN ×3 (08:15→19:56)
[2021-06-03] MEDS: NICOTINE POLACRILEX 2 MG LOZENGE PO PRN (08:49)
[2021-06-03 09:38] VITALS: BP 127/76
[2021-06-03 16:15] VITALS: BP 120/79
[2021-06-03] MEDS: ZOLPIDEM TARTRATE 10 MG TABLET PO PRN (20:39)
[2021-06-04 04:30] VITALS: BP 123/78
[2021-06-04] MEDS: LEVOTHYROXINE SODIUM 50 MCG TABLET PO SCH (06:44)
[2021-06-04] MEDS: DIVALPROEX SODIUM 250 MG DR TABLET PO SCH ×2 (08:14→20:33)
[2021-06-04] MEDS: CloZAPine 100 MG TABLET PO SCH ×2 (08:14→20:33)
[2021-06-04] MEDS: LITHIUM CARBONATE 600 MG CAPSULE PO SCH ×2 (08:14→20:33)
[2021-06-04 08:37] VITALS: BP 107/79
[2021-06-04] MEDS: LORazepam 2 MG TABLET PO PRN ×3 (10:44→20:32)
[2021-06-04 16:22] VITALS: BP 108/64
[2021-06-04] MEDS ORDERED: LORazepam 2 MG/ML VIAL ONE (18:55)
[2021-06-04] MEDS ORDERED: HALOPERIDOL LACTATE 5 MG/ML VIAL ONE (18:55)
[2021-06-04] MEDS ORDERED: DiphenhydrAMINE HCL 50 MG/ML VIAL ONE (18:55)
[2021-06-04] MEDS ORDERED: DiphenhydrAMINE HCL 50 MG/ML VIAL IM ONE (19:00)
[2021-06-04] MEDS ORDERED: LORazepam 2 MG/ML VIAL IM ONE (19:00)
[2021-06-04] MEDS ORDERED: HALOPERIDOL LACTATE 5 MG/ML VIAL IM ONE (19:00)
[2021-06-04] MEDS: ZOLPIDEM TARTRATE 10 MG TABLET PO PRN (20:32)
[2021-06-05 00:15] VITALS: BP 103/75
[2021-06-05] MEDS: LEVOTHYROXINE SODIUM 50 MCG TABLET PO SCH (06:35)
[2021-06-05] MEDS: LITHIUM CARBONATE 600 MG CAPSULE PO SCH ×2 (08:13→20:55)
[2021-06-05] MEDS: DIVALPROEX SODIUM 250 MG DR TABLET PO SCH ×2 (08:14→20:55)
[2021-06-05] MEDS: CloZAPine 100 MG TABLET PO SCH ×2 (08:14→20:55)
[2021-06-05 09:44] VITALS: BP 119/77
[2021-06-05] MEDS: LORazepam 2 MG TABLET PO PRN (10:16)
[2021-06-05 16:20] VITALS: BP 116/80
[2021-06-05] MEDS: NICOTINE POLACRILEX 2 MG LOZENGE PO PRN (17:05)
[2021-06-05] MEDS: ZOLPIDEM TARTRATE 10 MG TABLET PO PRN (20:54)
[2021-06-06] MEDS: LEVOTHYROXINE SODIUM 50 MCG TABLET PO SCH (06:28)
[2021-06-06] MEDS: DIVALPROEX SODIUM 250 MG DR TABLET PO SCH ×2 (08:11→20:42)
[2021-06-06] MEDS: LITHIUM CARBONATE 600 MG CAPSULE PO SCH ×2 (08:11→20:46)
[2021-06-06] MEDS: CloZAPine 100 MG TABLET PO SCH ×2 (08:12→20:42)
[2021-06-06 08:41] VITALS: BP 111/79
[2021-06-06] MEDS: LORazepam 2 MG TABLET PO PRN (09:34)
[2021-06-06 16:23] VITALS: BP 121/76
[2021-06-07] MEDS: LEVOTHYROXINE SODIUM 50 MCG TABLET PO SCH (06:16)
[2021-06-07] MEDS: CloZAPine 100 MG TABLET PO SCH ×2 (08:17→21:18)
[2021-06-07] MEDS: LITHIUM CARBONATE 600 MG CAPSULE PO SCH ×2 (08:17→21:17)
[2021-06-07] MEDS: DIVALPROEX SODIUM 250 MG DR TABLET PO SCH ×2 (08:18→21:17)
[2021-06-07] MEDS: LORazepam 2 MG TABLET PO PRN ×2 (08:18→16:50)
[2021-06-07 08:31] VITALS: BP 117/62
[2021-06-07 16:22] VITALS: BP 126/85
[2021-06-07] MEDS: ZOLPIDEM TARTRATE 10 MG TABLET PO PRN (21:18)
[2021-06-08 00:21] VITALS: BP 103/62
[2021-06-08] MEDS: LEVOTHYROXINE SODIUM 50 MCG TABLET PO SCH (06:35)
[2021-06-08] MEDS: DIVALPROEX SODIUM 250 MG DR TABLET PO SCH ×2 (08:58→20:11)
[2021-06-08] MEDS: CloZAPine 100 MG TABLET PO SCH ×2 (08:58→20:11)
[2021-06-08] MEDS: LITHIUM CARBONATE 600 MG CAPSULE PO SCH ×2 (08:58→20:11)
[2021-06-08 10:42] VITALS: BP 114/69
[2021-06-08 16:15] VITALS: BP 118/77
[2021-06-09 01:19] VITALS: BP 116/62
[2021-06-09] MEDS: LEVOTHYROXINE SODIUM 50 MCG TABLET PO SCH (07:03)
[2021-06-09 08:37] VITALS: BP 113/74
[2021-06-09] MEDS: LITHIUM CARBONATE 600 MG CAPSULE PO SCH ×2 (09:05→20:34)
[2021-06-09] MEDS: DIVALPROEX SODIUM 250 MG DR TABLET PO SCH ×2 (09:06→20:33)
[2021-06-09] MEDS: CloZAPine 100 MG TABLET PO SCH ×2 (09:06→20:33)
[2021-06-09] MEDS: LORazepam 2 MG TABLET PO PRN ×2 (12:54→17:08)
[2021-06-09 16:15] VITALS: BP 110/72
[2021-06-09] MEDS: ZOLPIDEM TARTRATE 10 MG TABLET PO PRN (20:34)
[2021-06-10 06:44] VITALS: BP 107/70
[2021-06-10] MEDS: LEVOTHYROXINE SODIUM 50 MCG TABLET PO SCH (06:53)
[2021-06-10 07:24] LABS: EOSINOPHILS % (AUTO) 0 % (1.0-6.0); HEMOGLOBIN 14.4 g/dL (13.5-17.5); LYMPHOCYTES # (AUTO) 1.7 K/uL (1.0-4.8); LYMPHOCYTES % (AUTO) 19.5 % (22.0-44.0); MEAN CORPUSCULAR HEMOGLOBIN 30.2 pg (26.0-34.0); MEAN CORPUSCULAR HGB CONC 34.2 G/dL (31.0-37.0); MEAN CORPUSCULAR VOLUME 88 fL (80-100); MONOCYTES # (AUTO) 0.6 K/uL (0.1-1.0); MONOCYTES % (AUTO) 6.5 % (2.0-9.0); NEUTROPHILS # (AUTO) 6.5 K/uL (1.8-7.7); PLATELET COUNT (AUTO) 175 K/uL (150-450); RED BLOOD CELL COUNT(AUTO) 4.75 MIL/uL (4.50-5.90); RED CELL DISTRIBUTION WIDTH 14.2 % (11.5-14.5)
[2021-06-10] MEDS: DIVALPROEX SODIUM 250 MG DR TABLET PO SCH ×2 (08:35→20:56)
[2021-06-10] MEDS: LITHIUM CARBONATE 600 MG CAPSULE PO SCH ×2 (08:35→20:56)
[2021-06-10] MEDS: CloZAPine 100 MG TABLET PO SCH ×2 (08:35→20:56)
[2021-06-10 08:49] VITALS: BP 120/82
[2021-06-10] MEDS: LORazepam 2 MG TABLET PO PRN ×2 (09:30→17:30)
[2021-06-10 16:18] VITALS: BP 120/82
[2021-06-10] MEDS: ZOLPIDEM TARTRATE 10 MG TABLET PO PRN (20:56)
[2021-06-11 06:21] VITALS: BP 112/70
[2021-06-11] MEDS: LEVOTHYROXINE SODIUM 50 MCG TABLET PO SCH (06:34)
[2021-06-11 08:20] VITALS: BP 108/64
[2021-06-11] MEDS: DIVALPROEX SODIUM 250 MG DR TABLET PO SCH ×2 (08:37→20:57)
[2021-06-11] MEDS: LITHIUM CARBONATE 600 MG CAPSULE PO SCH ×2 (08:38→20:58)
[2021-06-11] MEDS: CloZAPine 100 MG TABLET PO SCH ×2 (08:38→20:57)
[2021-06-11] MEDS: LORazepam 2 MG TABLET PO PRN ×2 (08:38→17:20)
[2021-06-11] MEDS: ALBUTEROL SULFATE HFA 90 MCG/PUFF 8 GM INHALER IH PRN (10:57)
[2021-06-11 16:20] VITALS: BP 122/63
[2021-06-11] MEDS: ZOLPIDEM TARTRATE 10 MG TABLET PO PRN (20:58)
[2021-06-12 05:46] VITALS: BP 125/78
[2021-06-12] MEDS: LEVOTHYROXINE SODIUM 50 MCG TABLET PO SCH (06:19)
[2021-06-12 08:43] VITALS: BP 108/63
[2021-06-12] MEDS: LITHIUM CARBONATE 600 MG CAPSULE PO SCH ×2 (09:02→20:17)
[2021-06-12] MEDS: DIVALPROEX SODIUM 250 MG DR TABLET PO SCH ×2 (09:02→20:17)
[2021-06-12] MEDS: LORazepam 2 MG TABLET PO PRN ×2 (09:02→15:42)
[2021-06-12] MEDS: CloZAPine 100 MG TABLET PO SCH ×2 (09:02→20:17)
[2021-06-12 16:11] VITALS: BP 131/83
[2021-06-12] MEDS: ZOLPIDEM TARTRATE 10 MG TABLET PO PRN (20:17)
[2021-06-13] MEDS: LEVOTHYROXINE SODIUM 50 MCG TABLET PO SCH (06:12)
[2021-06-13 07:16] VITALS: BP 124/79
[2021-06-13] MEDS: DIVALPROEX SODIUM 250 MG DR TABLET PO SCH ×2 (08:31→20:04)
[2021-06-13] MEDS: LITHIUM CARBONATE 600 MG CAPSULE PO SCH ×2 (08:32→20:05)
[2021-06-13] MEDS: CloZAPine 100 MG TABLET PO SCH ×2 (08:32→20:05)
[2021-06-13 08:58] VITALS: BP 129/83
[2021-06-13 16:18] VITALS: BP 111/76
[2021-06-14] MEDS: LEVOTHYROXINE SODIUM 50 MCG TABLET PO SCH (06:36)
[2021-06-14 07:02] VITALS: BP 108/79
[2021-06-14 08:07] VITALS: BP 107/76
[2021-06-14] MEDS: LITHIUM CARBONATE 600 MG CAPSULE PO SCH ×2 (08:26→20:20)
[2021-06-14] MEDS: LORazepam 2 MG TABLET PO PRN ×2 (08:26→17:07)
[2021-06-14] MEDS: CloZAPine 100 MG TABLET PO SCH ×2 (08:26→20:20)
[2021-06-14] MEDS: DIVALPROEX SODIUM 250 MG DR TABLET PO SCH ×2 (08:26→20:20)
[2021-06-14 16:10] VITALS: BP 100/62
[2021-06-14] MEDS: ZOLPIDEM TARTRATE 10 MG TABLET PO PRN (20:20)
[2021-06-15 00:11] VITALS: BP 140/86
[2021-06-15] MEDS: LEVOTHYROXINE SODIUM 50 MCG TABLET PO SCH (06:10)
[2021-06-15 07:42] LABS: BASOPHILS % (AUTO) 0.1 % (0.0-2.0); EOSINOPHILS % (AUTO) 0.1 % (1.0-6.0); HEMOGLOBIN 15.6 g/dL (13.5-17.5); LYMPHOCYTES # (AUTO) 2.1 K/uL (1.0-4.8); MEAN CORPUSCULAR HEMOGLOBIN 29.5 pg (26.0-34.0); MEAN CORPUSCULAR HGB CONC 33.2 G/dL (31.0-37.0); MEAN CORPUSCULAR VOLUME 89 fL (80-100); MONOCYTES # (AUTO) 0.5 K/uL (0.1-1.0); MONOCYTES % (AUTO) 5.5 % (2.0-9.0); NEUTROPHILS # (AUTO) 7.2 K/uL (1.8-7.7); NEUTROPHILS % (AUTO) 73.3 % (40.0-70.0); PLATELET COUNT (AUTO) 210 K/uL (150-450); RED BLOOD CELL COUNT(AUTO) 5.29 MIL/uL (4.50-5.90); RED CELL DISTRIBUTION WIDTH 14.3 % (11.5-14.5)
[2021-06-15 08:14] VITALS: BP 113/57
[2021-06-15] MEDS: LITHIUM CARBONATE 600 MG CAPSULE PO SCH ×2 (08:57→20:34)
[2021-06-15] MEDS: CloZAPine 100 MG TABLET PO SCH ×2 (08:58→20:35)
[2021-06-15] MEDS: DIVALPROEX SODIUM 250 MG DR TABLET PO SCH ×2 (08:58→20:34)
[2021-06-15] MEDS: NICOTINE POLACRILEX 2 MG LOZENGE PO PRN (13:14)
[2021-06-15 16:17] VITALS: BP 109/79
[2021-06-15] MEDS: LORazepam 2 MG TABLET PO PRN (16:34)
[2021-06-15] MEDS: ZOLPIDEM TARTRATE 10 MG TABLET PO PRN (20:35)
[2021-06-16 01:30] VITALS: BP 136/83
[2021-06-16] MEDS: LEVOTHYROXINE SODIUM 50 MCG TABLET PO SCH (06:26)
[2021-06-16 08:13] VITALS: BP 100/60
[2021-06-16] MEDS: CloZAPine 100 MG TABLET PO SCH ×2 (09:43→20:28)
[2021-06-16] MEDS: DIVALPROEX SODIUM 250 MG DR TABLET PO SCH ×2 (09:43→20:28)
[2021-06-16] MEDS: LITHIUM CARBONATE 600 MG CAPSULE PO SCH ×2 (09:43→20:28)
[2021-06-16 16:15] VITALS: BP 108/67
[2021-06-16] MEDS: LORazepam 2 MG TABLET PO PRN (18:42)
[2021-06-16] MEDS: ZOLPIDEM TARTRATE 10 MG TABLET PO PRN (20:29)
[2021-06-17 05:55] VITALS: BP 119/62
[2021-06-17] MEDS: LEVOTHYROXINE SODIUM 50 MCG TABLET PO SCH (06:35)
[2021-06-17] MEDS: LITHIUM CARBONATE 600 MG CAPSULE PO SCH ×2 (08:14→20:11)
[2021-06-17] MEDS: DIVALPROEX SODIUM 250 MG DR TABLET PO SCH ×2 (08:14→20:11)
[2021-06-17] MEDS: LORazepam 2 MG TABLET PO PRN (08:14)
[2021-06-17] MEDS: CloZAPine 100 MG TABLET PO SCH ×2 (08:14→20:11)
[2021-06-17 08:55] VITALS: BP 114/68
[2021-06-17 16:10] VITALS: BP 104/73
[2021-06-17] MEDS: ZOLPIDEM TARTRATE 10 MG TABLET PO PRN (20:11)
[2021-06-18 00:32] VITALS: BP 114/70
[2021-06-18] MEDS: LEVOTHYROXINE SODIUM 50 MCG TABLET PO SCH (06:11)
[2021-06-18] MEDS: DIVALPROEX SODIUM 250 MG DR TABLET PO SCH ×2 (08:31→20:22)
[2021-06-18] MEDS: CloZAPine 100 MG TABLET PO SCH ×2 (08:32→20:22)
[2021-06-18] MEDS: LITHIUM CARBONATE 600 MG CAPSULE PO SCH ×2 (08:38→20:22)
[2021-06-18 11:07] VITALS: BP 123/82
[2021-06-18 16:28] VITALS: BP 122/81
[2021-06-18 17:19] VITALS: BP 122/81
[2021-06-19 02:19] VITALS: BP 118/83
[2021-06-19] MEDS: NICOTINE POLACRILEX 2 MG LOZENGE PO PRN (07:00)
[2021-06-19] MEDS: LEVOTHYROXINE SODIUM 50 MCG TABLET PO SCH (07:03)
[2021-06-19 08:06] VITALS: BP 129/82
[2021-06-19] MEDS: LITHIUM CARBONATE 600 MG CAPSULE PO SCH ×2 (08:49→20:19)
[2021-06-19] MEDS: CloZAPine 100 MG TABLET PO SCH ×2 (08:50→20:19)
[2021-06-19] MEDS: DIVALPROEX SODIUM 250 MG DR TABLET PO SCH ×2 (08:50→20:19)
[2021-06-19] MEDS: LORazepam 2 MG TABLET PO PRN ×2 (11:32→20:19)
[2021-06-19 16:16] VITALS: BP 130/82
[2021-06-20 01:13] VITALS: BP 120/83
[2021-06-20] MEDS: LEVOTHYROXINE SODIUM 50 MCG TABLET PO SCH (06:16)
[2021-06-20 08:12] VITALS: BP 119/68
[2021-06-20] MEDS: DIVALPROEX SODIUM 250 MG DR TABLET PO SCH ×2 (08:25→20:31)
[2021-06-20] MEDS: CloZAPine 100 MG TABLET PO SCH ×2 (08:25→20:31)
[2021-06-20] MEDS: LITHIUM CARBONATE 600 MG CAPSULE PO SCH ×2 (08:26→20:31)
[2021-06-20] MEDS: LORazepam 2 MG TABLET PO PRN (16:03)
[2021-06-20 16:07] VITALS: BP 117/86
[2021-06-20] MEDS: ACETAMINOPHEN 325 MG TABLET PO PRN (17:18)
[2021-06-20] MEDS: ZOLPIDEM TARTRATE 10 MG TABLET PO PRN (20:31)
[2021-06-21] MEDS: LEVOTHYROXINE SODIUM 50 MCG TABLET PO SCH (06:42)
[2021-06-21 06:43] VITALS: BP 132/78
[2021-06-21 08:05] VITALS: BP 108/68
[2021-06-21] MEDS: CloZAPine 100 MG TABLET PO SCH ×2 (08:06→20:07)
[2021-06-21] MEDS: DIVALPROEX SODIUM 250 MG DR TABLET PO SCH ×2 (08:06→20:07)
[2021-06-21] MEDS: LITHIUM CARBONATE 600 MG CAPSULE PO SCH ×2 (08:06→20:07)
[2021-06-21] MEDS ORDERED: DiphenhydrAMINE HCL 50 MG/ML VIAL ONE (15:00)
[2021-06-21] MEDS ORDERED: DiphenhydrAMINE HCL 50 MG/ML VIAL IM ONE (15:15)
[2021-06-21] MEDS ORDERED: HALOPERIDOL LACTATE 5 MG/ML VIAL IM ONE (15:15)
[2021-06-21] MEDS ORDERED: LORazepam 2 MG/ML VIAL IM ONE (15:15)
[2021-06-21 16:18] VITALS: BP 116/75
[2021-06-21] MEDS: ZOLPIDEM TARTRATE 10 MG TABLET PO PRN (20:07)
[2021-06-22] MEDS: LEVOTHYROXINE SODIUM 50 MCG TABLET PO SCH (06:38)
[2021-06-22 06:59] LABS: BASOPHILS % (AUTO) 0.1 % (0.0-2.0); EOSINOPHILS % (AUTO) 0 % (1.0-6.0); HEMATOCRIT 40.7 % (41-53); HEMOGLOBIN 13.6 g/dL (13.5-17.5); LYMPHOCYTES % (AUTO) 28.2 % (22.0-44.0); MEAN CORPUSCULAR HEMOGLOBIN 29.4 pg (26.0-34.0); MEAN CORPUSCULAR HGB CONC 33.4 G/dL (31.0-37.0); MEAN CORPUSCULAR VOLUME 88 fL (80-100); MONOCYTES # (AUTO) 0.5 K/uL (0.1-1.0); MONOCYTES % (AUTO) 7.8 % (2.0-9.0); NEUTROPHILS # (AUTO) 4.5 K/uL (1.8-7.7); NEUTROPHILS % (AUTO) 63.9 % (40.0-70.0); PLATELET COUNT (AUTO) 154 K/uL (150-450); RED BLOOD CELL COUNT(AUTO) 4.63 MIL/uL (4.50-5.90)
[2021-06-22 08:21] LABS: GLUCOMETER DEV NAME(LOC) POC.BV
[2021-06-22] MEDS: DIVALPROEX SODIUM 250 MG DR TABLET PO SCH ×2 (08:32→20:53)
[2021-06-22] MEDS: LITHIUM CARBONATE 600 MG CAPSULE PO SCH ×2 (08:32→20:53)
[2021-06-22] MEDS: CloZAPine 100 MG TABLET PO SCH ×2 (08:32→20:54)
[2021-06-22 08:38] VITALS: BP 114/68
[2021-06-22 16:16] VITALS: BP 130/97
[2021-06-23 03:37] VITALS: BP 118/72
[2021-06-23] MEDS: LEVOTHYROXINE SODIUM 50 MCG TABLET PO SCH (06:40)
[2021-06-23] MEDS: CloZAPine 100 MG TABLET PO SCH ×2 (08:11→20:42)
[2021-06-23] MEDS: DIVALPROEX SODIUM 250 MG DR TABLET PO SCH ×2 (08:11→20:42)
[2021-06-23] MEDS: LITHIUM CARBONATE 600 MG CAPSULE PO SCH ×2 (08:11→20:42)
[2021-06-23 08:16] VITALS: BP 127/79
[2021-06-23 16:11] VITALS: BP 112/74
[2021-06-23] MEDS: LORazepam 2 MG TABLET PO PRN (16:27)
[2021-06-23] MEDS: ZOLPIDEM TARTRATE 10 MG TABLET PO PRN (20:42)
[2021-06-24 00:47] VITALS: BP 121/78
[2021-06-24] MEDS: LEVOTHYROXINE SODIUM 50 MCG TABLET PO SCH (06:11)
[2021-06-24] MEDS: CloZAPine 100 MG TABLET PO SCH ×2 (08:41→20:30)
[2021-06-24] MEDS: DIVALPROEX SODIUM 250 MG DR TABLET PO SCH ×2 (08:42→20:30)
[2021-06-24] MEDS: LITHIUM CARBONATE 600 MG CAPSULE PO SCH ×2 (08:42→20:30)
[2021-06-24 08:45] VITALS: BP 114/70
[2021-06-24] MEDS: ACETAMINOPHEN 325 MG TABLET PO PRN (13:23)
[2021-06-24 16:38] VITALS: BP 113/77
[2021-06-25] MEDS: LEVOTHYROXINE SODIUM 50 MCG TABLET PO SCH (06:27)
[2021-06-25 07:11] LABS: BASOPHILS % (AUTO) 0.4 % (0.0-2.0); EOSINOPHILS % (AUTO) 4.8 % (1.0-6.0); HEMOGLOBIN 12.7 g/dL (13.5-17.5); LYMPHOCYTES # (AUTO) 3.9 K/uL (1.0-4.8); LYMPHOCYTES % (AUTO) 45.2 % (22.0-44.0); MEAN CORPUSCULAR HEMOGLOBIN 27.3 pg (26.0-34.0); MEAN CORPUSCULAR HGB CONC 33.3 G/dL (31.0-37.0); MEAN CORPUSCULAR VOLUME 82 fL (80-100); MONOCYTES # (AUTO) 0.7 K/uL (0.1-1.0); MONOCYTES % (AUTO) 8.6 % (2.0-9.0); NEUTROPHILS # (AUTO) 3.6 K/uL (1.8-7.7); PLATELET COUNT (AUTO) 299 K/uL (150-450); RED BLOOD CELL COUNT(AUTO) 4.64 MIL/uL (4.50-5.90); RED CELL DISTRIBUTION WIDTH 13.8 % (11.5-14.5)
[2021-06-25 08:29] VITALS: BP 101/67
[2021-06-25] MEDS: DIVALPROEX SODIUM 250 MG DR TABLET PO SCH ×2 (08:58→20:31)
[2021-06-25] MEDS: CloZAPine 100 MG TABLET PO SCH ×2 (08:58→20:31)
[2021-06-25] MEDS: LITHIUM CARBONATE 600 MG CAPSULE PO SCH ×2 (08:58→20:31)
[2021-06-25 16:17] VITALS: BP 136/76
[2021-06-25] MEDS: LORazepam 2 MG TABLET PO PRN ×2 (17:18→21:18)
[2021-06-25] MEDS: ZOLPIDEM TARTRATE 10 MG TABLET PO PRN (20:31)
[2021-06-26] MEDS: LEVOTHYROXINE SODIUM 50 MCG TABLET PO SCH (06:25)
[2021-06-26 08:26] VITALS: BP 136/76
[2021-06-26] MEDS: DIVALPROEX SODIUM 250 MG DR TABLET PO SCH ×2 (08:28→19:49)
[2021-06-26] MEDS: CloZAPine 100 MG TABLET PO SCH ×2 (08:28→19:49)
[2021-06-26] MEDS: LITHIUM CARBONATE 600 MG CAPSULE PO SCH ×2 (08:29→19:49)
[2021-06-26 16:28] VITALS: BP 103/68
[2021-06-26] MEDS: LORazepam 2 MG TABLET PO PRN (16:33)
[2021-06-26] MEDS: ZOLPIDEM TARTRATE 10 MG TABLET PO PRN (20:48)
[2021-06-27 06:12] VITALS: BP 112/63
[2021-06-27] MEDS: LEVOTHYROXINE SODIUM 50 MCG TABLET PO SCH (06:21)
[2021-06-27] MEDS: LITHIUM CARBONATE 600 MG CAPSULE PO SCH ×2 (08:21→20:24)
[2021-06-27] MEDS: CloZAPine 100 MG TABLET PO SCH ×2 (08:21→20:24)
[2021-06-27] MEDS: DIVALPROEX SODIUM 250 MG DR TABLET PO SCH ×2 (08:21→20:24)
[2021-06-27 08:22] VITALS: BP 130/74
[2021-06-27 17:03] VITALS: BP 108/74
[2021-06-28] MEDS: LEVOTHYROXINE SODIUM 50 MCG TABLET PO SCH (06:10)
[2021-06-28] MEDS: DIVALPROEX SODIUM 250 MG DR TABLET PO SCH ×2 (08:05→20:16)
[2021-06-28] MEDS: CloZAPine 100 MG TABLET PO SCH ×2 (08:05→20:16)
[2021-06-28] MEDS: LITHIUM CARBONATE 600 MG CAPSULE PO SCH ×2 (08:05→20:16)
[2021-06-28 08:18] VITALS: BP 104/66
[2021-06-28 16:27] VITALS: BP 129/87
[2021-06-28] MEDS: NICOTINE POLACRILEX 2 MG LOZENGE PO PRN (17:15)
[2021-06-29 00:13] VITALS: BP 128/82
[2021-06-29] MEDS: LEVOTHYROXINE SODIUM 50 MCG TABLET PO SCH (06:18)
[2021-06-29 08:10] VITALS: BP 117/79
[2021-06-29 08:21] LABS: GLUCOMETER DEV NAME(LOC) POC.BV
[2021-06-29] MEDS: CloZAPine 100 MG TABLET PO SCH ×2 (08:53→20:28)
[2021-06-29] MEDS: LITHIUM CARBONATE 600 MG CAPSULE PO SCH ×2 (08:53→20:27)
[2021-06-29] MEDS: DIVALPROEX SODIUM 250 MG DR TABLET PO SCH ×2 (08:53→20:27)
[2021-06-29 09:43] LABS: BASOPHILS % (AUTO) 0.1 % (0.0-2.0); EOSINOPHILS % (AUTO) 0 % (1.0-6.0); HEMATOCRIT 46.1 % (41-53); HEMOGLOBIN 15.4 g/dL (13.5-17.5); LYMPHOCYTES # (AUTO) 1.7 K/uL (1.0-4.8); LYMPHOCYTES % (AUTO) 19.8 % (22.0-44.0); MEAN CORPUSCULAR HEMOGLOBIN 29.7 pg (26.0-34.0); MEAN CORPUSCULAR HGB CONC 33.5 G/dL (31.0-37.0); MEAN CORPUSCULAR VOLUME 89 fL (80-100); MONOCYTES # (AUTO) 0.6 K/uL (0.1-1.0); MONOCYTES % (AUTO) 6.9 % (2.0-9.0); NEUTROPHILS # (AUTO) 6.3 K/uL (1.8-7.7); NEUTROPHILS % (AUTO) 73.2 % (40.0-70.0); PLATELET COUNT (AUTO) 193 K/uL (150-450); RED BLOOD CELL COUNT(AUTO) 5.19 MIL/uL (4.50-5.90); RED CELL DISTRIBUTION WIDTH 14.1 % (11.5-14.5)
[2021-06-29 16:27] VITALS: BP 119/84
[2021-06-29] MEDS: ZOLPIDEM TARTRATE 10 MG TABLET PO PRN (20:28)
[2021-06-30 03:57] VITALS: BP 114/76
[2021-06-30] MEDS: LEVOTHYROXINE SODIUM 50 MCG TABLET PO SCH (05:56)
[2021-06-30 08:10] VITALS: BP 116/81
[2021-06-30] MEDS: DIVALPROEX SODIUM 250 MG DR TABLET PO SCH ×2 (08:21→20:44)
[2021-06-30] MEDS: CloZAPine 100 MG TABLET PO SCH ×2 (08:22→20:44)
[2021-06-30] MEDS: LITHIUM CARBONATE 600 MG CAPSULE PO SCH ×2 (08:22→20:44)
[2021-06-30] MEDS: NICOTINE POLACRILEX 2 MG LOZENGE PO PRN (15:59)
[2021-06-30] MEDS: LORazepam 2 MG TABLET PO PRN ×2 (15:59→21:07)
[2021-06-30 16:29] VITALS: BP 130/89
[2021-06-30] MEDS: ZOLPIDEM TARTRATE 10 MG TABLET PO PRN (20:44)
[2021-07-01 06:05] VITALS: BP 122/78
[2021-07-01] MEDS: LEVOTHYROXINE SODIUM 50 MCG TABLET PO SCH (06:43)
[2021-07-01 08:20] VITALS: BP 131/82
[2021-07-01 08:34] LABS: COVID AG,FIA SOURCE NASOPHARYNGEAL
[2021-07-01] MEDS: DIVALPROEX SODIUM 250 MG DR TABLET PO SCH ×2 (08:43→20:46)
[2021-07-01] MEDS: CloZAPine 100 MG TABLET PO SCH ×2 (08:43→20:46)
[2021-07-01] MEDS: LITHIUM CARBONATE 600 MG CAPSULE PO SCH ×2 (08:43→20:46)
[2021-07-01 16:22] VITALS: BP 123/79
[2021-07-01] MEDS: LORazepam 2 MG TABLET PO PRN (20:46)
[2021-07-01] MEDS: ZOLPIDEM TARTRATE 10 MG TABLET PO PRN (20:47)
[2021-07-02 06:13] VITALS: BP 126/81
[2021-07-02] MEDS: LEVOTHYROXINE SODIUM 50 MCG TABLET PO SCH (06:38)
[2021-07-02 08:32] VITALS: BP 119/77
[2021-07-02] MEDS: DIVALPROEX SODIUM 250 MG DR TABLET PO SCH ×2 (08:59→20:31)
[2021-07-02] MEDS: CloZAPine 100 MG TABLET PO SCH ×2 (09:00→20:31)
[2021-07-02] MEDS: LITHIUM CARBONATE 600 MG CAPSULE PO SCH ×2 (09:00→20:31)
[2021-07-02] MEDS: LORazepam 2 MG TABLET PO PRN ×2 (10:46→16:47)
[2021-07-02 16:26] VITALS: BP 141/86
[2021-07-03 00:42] VITALS: BP 132/85
[2021-07-03] MEDS: LEVOTHYROXINE SODIUM 50 MCG TABLET PO SCH (06:44)
[2021-07-03] MEDS: CloZAPine 100 MG TABLET PO SCH ×2 (08:25→20:08)
[2021-07-03] MEDS: DIVALPROEX SODIUM 250 MG DR TABLET PO SCH ×2 (08:25→20:08)
[2021-07-03] MEDS: LITHIUM CARBONATE 600 MG CAPSULE PO SCH ×2 (08:25→20:08)
[2021-07-03 09:02] VITALS: BP 102/68
[2021-07-03] MEDS: LORazepam 2 MG TABLET PO PRN ×2 (11:55→16:13)
[2021-07-03] MEDS ORDERED: LORazepam 2 MG/ML VIAL ONE (14:26)
[2021-07-03] MEDS ORDERED: DiphenhydrAMINE HCL 50 MG/ML VIAL ONE (14:26)
[2021-07-03] MEDS ORDERED: LORazepam 2 MG/ML VIAL IM ONE ×2 (14:30→19:45)
[2021-07-03] MEDS ORDERED: DiphenhydrAMINE HCL 50 MG/ML VIAL IM ONE ×2 (14:30→19:45)
[2021-07-03] MEDS ORDERED: HALOPERIDOL LACTATE 5 MG/ML VIAL IM ONE (14:30)
[2021-07-03 16:32] VITALS: BP 125/77
[2021-07-03] MEDS ORDERED: ChlorproMAZINE HCL 50 MG/2 ML AMP IM ONE (19:45)
[2021-07-03] MEDS ORDERED: ChlorproMAZINE HCL 50 MG/2 ML AMP ONE (19:46)
[2021-07-03] MEDS: ZOLPIDEM TARTRATE 10 MG TABLET PO PRN (20:08)
[2021-07-03] MEDS: ALBUTEROL SULFATE HFA 90 MCG/PUFF 8 GM INHALER IH PRN (21:50)
[2021-07-04] MEDS: LEVOTHYROXINE SODIUM 50 MCG TABLET PO SCH (06:10)
[2021-07-04 06:13] VITALS: BP 114/80
[2021-07-04] MEDS: LITHIUM CARBONATE 600 MG CAPSULE PO SCH ×2 (08:10→20:23)
[2021-07-04] MEDS: DIVALPROEX SODIUM 250 MG DR TABLET PO SCH ×2 (08:11→20:23)
[2021-07-04] MEDS: CloZAPine 100 MG TABLET PO SCH ×2 (08:11→20:23)
[2021-07-04 09:24] VITALS: BP 119/79
[2021-07-04 16:19] VITALS: BP 116/82
[2021-07-04] MEDS: ZOLPIDEM TARTRATE 10 MG TABLET PO PRN (20:23)
[2021-07-05] MEDS: LEVOTHYROXINE SODIUM 50 MCG TABLET PO SCH (06:31)
[2021-07-05 06:34] VITALS: BP 128/79
[2021-07-05] MEDS: DIVALPROEX SODIUM 250 MG DR TABLET PO SCH ×2 (08:15→20:42)
[2021-07-05] MEDS: LITHIUM CARBONATE 600 MG CAPSULE PO SCH ×2 (08:15→20:43)
[2021-07-05] MEDS: CloZAPine 100 MG TABLET PO SCH ×2 (08:15→20:43)
[2021-07-05 08:24] VITALS: BP 120/82
[2021-07-05] MEDS: LORazepam 2 MG TABLET PO PRN (08:58)
[2021-07-05 16:17] VITALS: BP 135/81
[2021-07-05] MEDS: ZOLPIDEM TARTRATE 10 MG TABLET PO PRN (20:43)
[2021-07-06] MEDS: LEVOTHYROXINE SODIUM 50 MCG TABLET PO SCH (06:14)
[2021-07-06 06:30] VITALS: BP 111/77
[2021-07-06 06:49] LABS: EOSINOPHILS % (AUTO) 0 % (1.0-6.0); HEMATOCRIT 41.9 % (41-53); HEMOGLOBIN 14.2 g/dL (13.5-17.5); LYMPHOCYTES # (AUTO) 0.8 K/uL (1.0-4.8); LYMPHOCYTES % (AUTO) 12.2 % (22.0-44.0); MEAN CORPUSCULAR HEMOGLOBIN 29.7 pg (26.0-34.0); MEAN CORPUSCULAR HGB CONC 33.8 G/dL (31.0-37.0); MEAN CORPUSCULAR VOLUME 88 fL (80-100); MONOCYTES # (AUTO) 0.8 K/uL (0.1-1.0); MONOCYTES % (AUTO) 11.8 % (2.0-9.0); NEUTROPHILS # (AUTO) 5.2 K/uL (1.8-7.7); PLATELET COUNT (AUTO) 142 K/uL (150-450); RED BLOOD CELL COUNT(AUTO) 4.77 MIL/uL (4.50-5.90); RED CELL DISTRIBUTION WIDTH 13.9 % (11.5-14.5)
[2021-07-06 08:18] VITALS: BP 100/60
[2021-07-06] MEDS: CloZAPine 100 MG TABLET PO SCH ×2 (08:38→20:43)
[2021-07-06] MEDS: DIVALPROEX SODIUM 250 MG DR TABLET PO SCH ×2 (08:38→20:43)
[2021-07-06] MEDS: LITHIUM CARBONATE 600 MG CAPSULE PO SCH ×2 (08:38→20:43)
[2021-07-06] MEDS: LORazepam 2 MG TABLET PO PRN (08:53)
[2021-07-06 13:00] LABS: GLUCOMETER DEV NAME(LOC) POC.BV
[2021-07-06] MEDS: ACETAMINOPHEN 325 MG TABLET PO PRN (15:41)
[2021-07-06 16:19] VITALS: BP 113/80
[2021-07-07 01:47] VITALS: BP 110/75
[2021-07-07] MEDS: LEVOTHYROXINE SODIUM 50 MCG TABLET PO SCH (06:41)
[2021-07-07 08:36] VITALS: BP 110/60
[2021-07-07] MEDS: LITHIUM CARBONATE 600 MG CAPSULE PO SCH ×2 (09:20→20:54)
[2021-07-07] MEDS: CloZAPine 100 MG TABLET PO SCH ×2 (09:20→20:53)
[2021-07-07] MEDS: DIVALPROEX SODIUM 250 MG DR TABLET PO SCH ×2 (09:20→20:53)
[2021-07-07] MEDS: LORazepam 2 MG TABLET PO PRN (09:25)
[2021-07-07 16:13] VITALS: BP 100/75
[2021-07-07] MEDS: ZOLPIDEM TARTRATE 10 MG TABLET PO PRN (20:54)
[2021-07-08 04:55] VITALS: BP 108/70
[2021-07-08] MEDS: LEVOTHYROXINE SODIUM 50 MCG TABLET PO SCH (06:38)
[2021-07-08] MEDS: LITHIUM CARBONATE 600 MG CAPSULE PO SCH ×2 (08:21→20:42)
[2021-07-08] MEDS: CloZAPine 100 MG TABLET PO SCH ×2 (08:21→20:42)
[2021-07-08] MEDS: DIVALPROEX SODIUM 250 MG DR TABLET PO SCH ×2 (08:21→20:42)
[2021-07-08 08:26] LABS: LITHIUM 0.76 mmol/L (0.60-1.20)
[2021-07-08 10:36] VITALS: BP 124/79
[2021-07-08 16:13] VITALS: BP 136/90
[2021-07-08] MEDS: GuaiFENesin/D-METHORPHAN [SUGAR-FREE] 200-20MG/10 ML SYRUP UDCUP PO PRN (16:31)
[2021-07-08] MEDS: ZOLPIDEM TARTRATE 10 MG TABLET PO PRN (20:42)
[2021-07-09] MEDS: LEVOTHYROXINE SODIUM 50 MCG TABLET PO SCH (06:35)
[2021-07-09 08:16] VITALS: BP 115/73
[2021-07-09] MEDS: DIVALPROEX SODIUM 250 MG DR TABLET PO SCH ×2 (08:28→20:46)
[2021-07-09] MEDS: CloZAPine 100 MG TABLET PO SCH ×2 (08:28→20:46)
[2021-07-09] MEDS: LITHIUM CARBONATE 600 MG CAPSULE PO SCH ×2 (08:28→20:46)
[2021-07-09] MEDS: GuaiFENesin/D-METHORPHAN [SUGAR-FREE] 200-20MG/10 ML SYRUP UDCUP PO PRN (10:20)
[2021-07-09 11:36] LABS: GLUCOMETER DEV NAME(LOC) POC.BV
[2021-07-09 12:28] VITALS: BP 121/75
[2021-07-09 16:16] VITALS: BP 131/69
[2021-07-09] MEDS: LORazepam 2 MG TABLET PO PRN ×2 (17:10→22:02)
[2021-07-09] MEDS: NICOTINE POLACRILEX 2 MG LOZENGE PO PRN (17:34)
[2021-07-09 20:08] VITALS: BP 124/80
[2021-07-10 06:04] VITALS: BP 133/75
[2021-07-10] MEDS: LEVOTHYROXINE SODIUM 50 MCG TABLET PO SCH (06:30)
[2021-07-10] MEDS: LITHIUM CARBONATE 600 MG CAPSULE PO SCH ×2 (08:52→20:21)
[2021-07-10] MEDS: CloZAPine 100 MG TABLET PO SCH ×2 (08:52→20:21)
[2021-07-10] MEDS: DIVALPROEX SODIUM 250 MG DR TABLET PO SCH ×2 (08:52→20:21)
[2021-07-10 09:00] VITALS: BP 120/70
[2021-07-10] MEDS: GuaiFENesin/D-METHORPHAN [SUGAR-FREE] 200-20MG/10 ML SYRUP UDCUP PO PRN (11:25)
[2021-07-10 12:29] VITALS: BP_SYST 122
[2021-07-10] MEDS: LORazepam 2 MG TABLET PO PRN (14:40)
[2021-07-10 16:10] VITALS: BP 118/70
[2021-07-10 20:45] VITALS: BP 120/81
[2021-07-11 01:57] VITALS: BP 116/74
[2021-07-11 04:48] VITALS: BP 120/74
[2021-07-11] MEDS: LEVOTHYROXINE SODIUM 50 MCG TABLET PO SCH (06:26)
[2021-07-11] MEDS: LITHIUM CARBONATE 600 MG CAPSULE PO SCH ×2 (08:01→20:19)
[2021-07-11] MEDS: CloZAPine 100 MG TABLET PO SCH ×2 (08:01→20:18)
[2021-07-11] MEDS: DIVALPROEX SODIUM 250 MG DR TABLET PO SCH ×2 (08:01→20:19)
[2021-07-11] MEDS: LORazepam 2 MG TABLET PO PRN (09:56)
[2021-07-11 12:12] VITALS: BP 109/79
[2021-07-11] MEDS: NICOTINE POLACRILEX 2 MG LOZENGE PO PRN (12:12)
[2021-07-11 16:07] VITALS: BP 103/75
[2021-07-11 20:06] VITALS: BP 114/80
[2021-07-12 01:54] VITALS: BP 118/83
[2021-07-12] MEDS: LEVOTHYROXINE SODIUM 50 MCG TABLET PO SCH (06:24)
[2021-07-12] MEDS: LITHIUM CARBONATE 600 MG CAPSULE PO SCH ×2 (08:45→20:16)
[2021-07-12] MEDS: DIVALPROEX SODIUM 250 MG DR TABLET PO SCH ×2 (08:45→20:16)
[2021-07-12] MEDS: CloZAPine 100 MG TABLET PO SCH ×2 (08:45→20:16)
[2021-07-12 10:13] VITALS: BP 111/76
[2021-07-12 13:16] VITALS: BP 117/77
[2021-07-12 16:08] VITALS: BP 117/81
[2021-07-12 20:07] VITALS: BP 124/78
[2021-07-13 04:06] VITALS: BP 101/67
[2021-07-13] MEDS: LEVOTHYROXINE SODIUM 50 MCG TABLET PO SCH (06:29)
[2021-07-13 07:39] LABS: BASOPHILS % (AUTO) 0.1 % (0.0-2.0); EOSINOPHILS % (AUTO) 0 % (1.0-6.0); HEMATOCRIT 44.4 % (41-53); HEMOGLOBIN 14.8 g/dL (13.5-17.5); LYMPHOCYTES % (AUTO) 26.5 % (22.0-44.0); MEAN CORPUSCULAR HEMOGLOBIN 29.3 pg (26.0-34.0); MEAN CORPUSCULAR HGB CONC 33.3 G/dL (31.0-37.0); MEAN CORPUSCULAR VOLUME 88 fL (80-100); MONOCYTES # (AUTO) 0.5 K/uL (0.1-1.0); MONOCYTES % (AUTO) 6.3 % (2.0-9.0); NEUTROPHILS # (AUTO) 5.1 K/uL (1.8-7.7); NEUTROPHILS % (AUTO) 67.1 % (40.0-70.0); PLATELET COUNT (AUTO) 134 K/uL (150-450); RED BLOOD CELL COUNT(AUTO) 5.05 MIL/uL (4.50-5.90); RED CELL DISTRIBUTION WIDTH 13.6 % (11.5-14.5)
[2021-07-13 08:15] VITALS: BP 109/67
[2021-07-13] MEDS: DIVALPROEX SODIUM 250 MG DR TABLET PO SCH ×2 (08:38→20:24)
[2021-07-13] MEDS: CloZAPine 100 MG TABLET PO SCH ×2 (08:38→20:25)
[2021-07-13] MEDS: LORazepam 2 MG TABLET PO PRN ×2 (08:38→16:06)
[2021-07-13] MEDS: LITHIUM CARBONATE 600 MG CAPSULE PO SCH ×2 (08:38→20:24)
[2021-07-13 12:30] VITALS: BP 90/60
[2021-07-13 16:10] VITALS: BP 137/68
[2021-07-13 20:09] VITALS: BP 101/64
[2021-07-14 01:09] VITALS: BP 109/67
[2021-07-14 04:58] VITALS: BP 121/62
[2021-07-14] MEDS: LEVOTHYROXINE SODIUM 50 MCG TABLET PO SCH (06:57)
[2021-07-14 08:18] VITALS: BP 106/67
[2021-07-14] MEDS: DIVALPROEX SODIUM 250 MG DR TABLET PO SCH ×2 (08:25→20:51)
[2021-07-14] MEDS: CloZAPine 100 MG TABLET PO SCH ×2 (08:25→20:52)
[2021-07-14] MEDS: LITHIUM CARBONATE 600 MG CAPSULE PO SCH ×2 (08:25→20:51)
[2021-07-14 12:21] VITALS: BP 103/67
[2021-07-14 16:09] VITALS: BP 138/72
[2021-07-14 20:09] VITALS: BP 130/70
[2021-07-14] MEDS: ZOLPIDEM TARTRATE 10 MG TABLET PO PRN (20:52)
[2021-07-14] MEDS: LORazepam 2 MG TABLET PO PRN (20:52)
[2021-07-15 06:27] VITALS: BP 119/75
[2021-07-15] MEDS: LEVOTHYROXINE SODIUM 50 MCG TABLET PO SCH (07:12)
[2021-07-15] MEDS: DIVALPROEX SODIUM 250 MG DR TABLET PO SCH ×2 (08:01→20:44)
[2021-07-15] MEDS: CloZAPine 100 MG TABLET PO SCH ×2 (08:01→20:43)
[2021-07-15] MEDS: LITHIUM CARBONATE 600 MG CAPSULE PO SCH ×2 (08:01→20:44)
[2021-07-15 08:10] VITALS: BP 124/68
[2021-07-15 12:23] VITALS: BP 128/70
[2021-07-15 16:08] VITALS: BP 125/89
[2021-07-15 20:08] VITALS: BP 107/71
[2021-07-15] MEDS: LORazepam 2 MG TABLET PO PRN (20:44)
[2021-07-15] MEDS: ZOLPIDEM TARTRATE 10 MG TABLET PO PRN (22:47)
[2021-07-16 01:08] VITALS: BP 124/75
[2021-07-16 05:01] VITALS: BP 124/87
[2021-07-16] MEDS: LEVOTHYROXINE SODIUM 50 MCG TABLET PO SCH (06:38)
[2021-07-16] MEDS: CloZAPine 100 MG TABLET PO SCH ×2 (08:25→20:41)
[2021-07-16] MEDS: LITHIUM CARBONATE 600 MG CAPSULE PO SCH ×2 (08:25→20:41)
[2021-07-16] MEDS: DIVALPROEX SODIUM 250 MG DR TABLET PO SCH ×2 (08:25→20:41)
[2021-07-16 10:07] VITALS: BP 129/81
[2021-07-16] MEDS: LORazepam 2 MG TABLET PO PRN ×2 (11:15→16:40)
[2021-07-16 12:26] LABS: GLUCOMETER DEV NAME(LOC) POC.BV
[2021-07-16 12:48] VITALS: BP 132/68
[2021-07-16 16:12] VITALS: BP 107/68
[2021-07-16 20:15] VITALS: BP 120/78
[2021-07-16] MEDS: ZOLPIDEM TARTRATE 10 MG TABLET PO PRN (20:41)
[2021-07-17] MEDS: LEVOTHYROXINE SODIUM 50 MCG TABLET PO SCH (06:34)
[2021-07-17 07:09] VITALS: BP 114/72
[2021-07-17] MEDS: LITHIUM CARBONATE 600 MG CAPSULE PO SCH ×2 (08:15→20:17)
[2021-07-17] MEDS: DIVALPROEX SODIUM 250 MG DR TABLET PO SCH ×2 (08:15→20:17)
[2021-07-17] MEDS: CloZAPine 100 MG TABLET PO SCH ×2 (08:15→20:17)
[2021-07-17 08:22] VITALS: BP 122/70
[2021-07-17] MEDS: LORazepam 2 MG TABLET PO PRN ×2 (12:45→20:17)
[2021-07-17 16:07] VITALS: BP 114/74
[2021-07-17] MEDS: ZOLPIDEM TARTRATE 10 MG TABLET PO PRN (20:17)
[2021-07-18] MEDS: LEVOTHYROXINE SODIUM 50 MCG TABLET PO SCH (06:26)
[2021-07-18 06:38] VITALS: BP 120/71
[2021-07-18] MEDS: LITHIUM CARBONATE 600 MG CAPSULE PO SCH ×2 (08:25→20:31)
[2021-07-18] MEDS: DIVALPROEX SODIUM 250 MG DR TABLET PO SCH ×2 (08:25→20:31)
[2021-07-18] MEDS: CloZAPine 100 MG TABLET PO SCH ×2 (08:25→20:31)
[2021-07-18 09:00] VITALS: BP 124/70
[2021-07-18 16:06] VITALS: BP 109/62
[2021-07-18 20:14] VITALS: BP 108/67
[2021-07-18] MEDS: ZOLPIDEM TARTRATE 10 MG TABLET PO PRN (20:31)
[2021-07-19 04:09] VITALS: BP 111/77
[2021-07-19] MEDS: LEVOTHYROXINE SODIUM 50 MCG TABLET PO SCH (06:28)
[2021-07-19] MEDS: DIVALPROEX SODIUM 250 MG DR TABLET PO SCH ×2 (08:06→20:24)
[2021-07-19] MEDS: CloZAPine 100 MG TABLET PO SCH ×2 (08:06→20:24)
[2021-07-19] MEDS: LITHIUM CARBONATE 600 MG CAPSULE PO SCH ×2 (08:06→20:24)
[2021-07-19 08:52] VITALS: BP 113/72
[2021-07-19] MEDS: LORazepam 2 MG TABLET PO PRN ×2 (10:10→18:06)
[2021-07-19] MEDS ORDERED: TUBERCULIN, PURIFIED PROTEIN DERIVATIVE 5 TU/0.1 ML SYRINGE ID ONE (13:30)
[2021-07-19] MEDS ORDERED: DIVA-111 PO (14:25)
[2021-07-19] MEDS ORDERED: CLOZ100T32 PO ×2 (14:25)
[2021-07-19 16:06] VITALS: BP 124/87
[2021-07-19] MEDS: ZOLPIDEM TARTRATE 10 MG TABLET PO PRN (20:25)
[2021-07-20 03:49] VITALS: BP 123/89
[2021-07-20] MEDS: LEVOTHYROXINE SODIUM 50 MCG TABLET PO SCH (06:04)
[2021-07-20] MEDS: CloZAPine 100 MG TABLET PO SCH ×2 (08:15→20:05)
[2021-07-20] MEDS: LITHIUM CARBONATE 600 MG CAPSULE PO SCH ×2 (08:15→20:05)
[2021-07-20] MEDS: DIVALPROEX SODIUM 250 MG DR TABLET PO SCH ×2 (08:15→20:05)
[2021-07-20 08:23] VITALS: BP 96/61
[2021-07-20 16:05] VITALS: BP 113/71
[2021-07-20 23:34] VITALS: BP 114/69
[2021-07-21 04:06] VITALS: BP 112/66
[2021-07-21] MEDS: LEVOTHYROXINE SODIUM 50 MCG TABLET PO SCH (06:13)
[2021-07-21] MEDS: LITHIUM CARBONATE 600 MG CAPSULE PO SCH ×2 (08:09→20:32)
[2021-07-21] MEDS: DIVALPROEX SODIUM 250 MG DR TABLET PO SCH ×2 (08:09→20:31)
[2021-07-21] MEDS: CloZAPine 100 MG TABLET PO SCH ×2 (08:09→20:31)
[2021-07-21 08:20] VITALS: BP 106/67
[2021-07-21 10:06] LABS: GLUCOMETER DEV NAME(LOC) POC.BV
[2021-07-21] MEDS: NICOTINE POLACRILEX 2 MG LOZENGE PO PRN (10:20)
[2021-07-21] MEDS: LORazepam 2 MG TABLET PO PRN ×2 (13:54→19:09)
[2021-07-21 16:25] VITALS: BP 140/92
[2021-07-21] MEDS: ZOLPIDEM TARTRATE 10 MG TABLET PO PRN (20:32)
[2021-07-22 00:21] VITALS: BP 139/89
[2021-07-22] MEDS: LEVOTHYROXINE SODIUM 50 MCG TABLET PO SCH (06:56)
[2021-07-22] MEDS: LITHIUM CARBONATE 600 MG CAPSULE PO SCH ×2 (07:57→20:27)
[2021-07-22] MEDS: DIVALPROEX SODIUM 250 MG DR TABLET PO SCH ×2 (07:58→20:27)
[2021-07-22] MEDS: CloZAPine 100 MG TABLET PO SCH ×2 (07:58→20:27)
[2021-07-22 09:06] VITALS: BP 108/70
[2021-07-22 16:28] VITALS: BP 103/63
[2021-07-22] MEDS: LORazepam 2 MG TABLET PO PRN (16:52)
[2021-07-22] MEDS: ZOLPIDEM TARTRATE 10 MG TABLET PO PRN (20:27)
[2021-07-23] MEDS: LEVOTHYROXINE SODIUM 50 MCG TABLET PO SCH (06:24)
[2021-07-23 08:25] LABS: BASOPHILS % (AUTO) 0.1 % (0.0-2.0); EOSINOPHILS % (AUTO) 0 % (1.0-6.0); HEMATOCRIT 43.4 % (41-53); HEMOGLOBIN 14.7 g/dL (13.5-17.5); LYMPHOCYTES # (AUTO) 1.7 K/uL (1.0-4.8); LYMPHOCYTES % (AUTO) 22.6 % (22.0-44.0); MEAN CORPUSCULAR HEMOGLOBIN 29.5 pg (26.0-34.0); MEAN CORPUSCULAR HGB CONC 33.8 G/dL (31.0-37.0); MEAN CORPUSCULAR VOLUME 87 fL (80-100); MONOCYTES # (AUTO) 0.4 K/uL (0.1-1.0); MONOCYTES % (AUTO) 5.8 % (2.0-9.0); NEUTROPHILS # (AUTO) 5.3 K/uL (1.8-7.7); NEUTROPHILS % (AUTO) 71.5 % (40.0-70.0); PLATELET COUNT (AUTO) 188 K/uL (150-450); RED BLOOD CELL COUNT(AUTO) 4.96 MIL/uL (4.50-5.90)
[2021-07-23] MEDS: CloZAPine 100 MG TABLET PO SCH ×2 (08:53→20:43)
[2021-07-23] MEDS: DIVALPROEX SODIUM 250 MG DR TABLET PO SCH ×2 (08:53→20:43)
[2021-07-23] MEDS: LITHIUM CARBONATE 600 MG CAPSULE PO SCH ×2 (08:54→20:43)
[2021-07-23 10:33] VITALS: BP 98/59
[2021-07-23] MEDS: LORazepam 2 MG TABLET PO PRN (12:11)
[2021-07-23] MEDS: NICOTINE POLACRILEX 2 MG LOZENGE PO PRN (13:18)
[2021-07-23 16:15] VITALS: BP 123/82
[2021-07-24] MEDS: LEVOTHYROXINE SODIUM 50 MCG TABLET PO SCH (06:32)
[2021-07-24] MEDS: DIVALPROEX SODIUM 250 MG DR TABLET PO SCH ×2 (08:11→20:34)
[2021-07-24] MEDS: LITHIUM CARBONATE 600 MG CAPSULE PO SCH ×2 (08:11→20:34)
[2021-07-24] MEDS: CloZAPine 100 MG TABLET PO SCH ×2 (08:12→20:33)
[2021-07-24 10:05] VITALS: BP 114/76
[2021-07-24 16:14] VITALS: BP 120/76
[2021-07-24] MEDS: MAG HYDROX/AL HYDROX/SIMETH ES 30 ML SUSPENSION UDCUP PO PRN (21:26)
[2021-07-25 01:55] VITALS: BP 114/68
[2021-07-25] MEDS: LEVOTHYROXINE SODIUM 50 MCG TABLET PO SCH (06:23)
[2021-07-25 08:21] VITALS: BP 134/97
[2021-07-25] MEDS: LITHIUM CARBONATE 600 MG CAPSULE PO SCH ×2 (08:54→21:03)
[2021-07-25] MEDS: DIVALPROEX SODIUM 250 MG DR TABLET PO SCH ×2 (08:54→21:02)
[2021-07-25] MEDS: CloZAPine 100 MG TABLET PO SCH ×2 (08:54→21:03)
[2021-07-25] MEDS: MAG HYDROX/AL HYDROX/SIMETH ES 30 ML SUSPENSION UDCUP PO PRN (09:46)
[2021-07-25] MEDS: LORazepam 2 MG TABLET PO PRN (09:54)
[2021-07-25] MEDS: OMEPRAZOLE 20 MG CAPSULE PO SCH (10:14)
[2021-07-25 18:01] VITALS: BP 124/81
[2021-07-26] MEDS: LEVOTHYROXINE SODIUM 50 MCG TABLET PO SCH (06:43)
[2021-07-26 08:23] VITALS: BP 111/83
[2021-07-26] MEDS: LITHIUM CARBONATE 600 MG CAPSULE PO SCH ×2 (08:55→20:39)
[2021-07-26] MEDS: OMEPRAZOLE 20 MG CAPSULE PO SCH (08:55)
[2021-07-26] MEDS: CloZAPine 100 MG TABLET PO SCH ×2 (08:55→20:39)
[2021-07-26] MEDS: DIVALPROEX SODIUM 250 MG DR TABLET PO SCH ×2 (08:55→20:39)
[2021-07-26 16:15] VITALS: BP 105/74
[2021-07-27] MEDS: LEVOTHYROXINE SODIUM 50 MCG TABLET PO SCH (06:11)
[2021-07-27 08:34] VITALS: BP 116/73
[2021-07-27] MEDS: DIVALPROEX SODIUM 250 MG DR TABLET PO SCH ×2 (08:37→21:02)
[2021-07-27] MEDS: LITHIUM CARBONATE 600 MG CAPSULE PO SCH ×2 (08:37→21:02)
[2021-07-27] MEDS: OMEPRAZOLE 20 MG CAPSULE PO SCH (08:37)
[2021-07-27] MEDS: CloZAPine 100 MG TABLET PO SCH ×2 (08:37→21:02)
[2021-07-27] MEDS: LORazepam 2 MG TABLET PO PRN (16:18)
[2021-07-27] MEDS: NICOTINE POLACRILEX 2 MG LOZENGE PO PRN (16:18)
[2021-07-27 16:59] VITALS: BP 131/74
[2021-07-27] MEDS: ZOLPIDEM TARTRATE 10 MG TABLET PO PRN (21:02)
[2021-07-28 05:51] VITALS: BP 126/77
[2021-07-28] MEDS: LEVOTHYROXINE SODIUM 50 MCG TABLET PO SCH (06:21)
[2021-07-28] MEDS: CloZAPine 100 MG TABLET PO SCH ×2 (08:16→21:12)
[2021-07-28] MEDS: LITHIUM CARBONATE 600 MG CAPSULE PO SCH ×2 (08:17→21:11)
[2021-07-28] MEDS: DIVALPROEX SODIUM 250 MG DR TABLET PO SCH ×2 (08:17→21:00)
[2021-07-28] MEDS: OMEPRAZOLE 20 MG CAPSULE PO SCH (08:17)
[2021-07-28 08:36] VITALS: BP 106/61
[2021-07-28 16:23] VITALS: BP 118/72
[2021-07-28] MEDS: NICOTINE POLACRILEX 2 MG LOZENGE PO PRN (17:00)
[2021-07-28] MEDS: ZOLPIDEM TARTRATE 10 MG TABLET PO PRN (21:12)
[2021-07-29 05:35] VITALS: BP 117/67
[2021-07-29] MEDS: LEVOTHYROXINE SODIUM 50 MCG TABLET PO SCH (07:01)
[2021-07-29 07:24] LABS: BASOPHILS % (AUTO) 0.1 % (0.0-2.0); EOSINOPHILS % (AUTO) 0 % (1.0-6.0); HEMATOCRIT 41.7 % (41-53); HEMOGLOBIN 14.3 g/dL (13.5-17.5); LYMPHOCYTES # (AUTO) 1.6 K/uL (1.0-4.8); LYMPHOCYTES % (AUTO) 21.6 % (22.0-44.0); MEAN CORPUSCULAR HEMOGLOBIN 29.9 pg (26.0-34.0); MEAN CORPUSCULAR HGB CONC 34.4 G/dL (31.0-37.0); MEAN CORPUSCULAR VOLUME 87 fL (80-100); MONOCYTES # (AUTO) 0.5 K/uL (0.1-1.0); MONOCYTES % (AUTO) 6.4 % (2.0-9.0); NEUTROPHILS # (AUTO) 5.3 K/uL (1.8-7.7); NEUTROPHILS % (AUTO) 71.9 % (40.0-70.0); PLATELET COUNT (AUTO) 169 K/uL (150-450); RED CELL DISTRIBUTION WIDTH 14.1 % (11.5-14.5)
[2021-07-29] MEDS: CloZAPine 100 MG TABLET PO SCH ×2 (08:09→20:39)
[2021-07-29] MEDS: OMEPRAZOLE 20 MG CAPSULE PO SCH (08:10)
[2021-07-29] MEDS: LITHIUM CARBONATE 600 MG CAPSULE PO SCH ×2 (08:10→20:39)
[2021-07-29] MEDS: NICOTINE POLACRILEX 2 MG LOZENGE PO PRN (08:10)
[2021-07-29] MEDS: DIVALPROEX SODIUM 250 MG DR TABLET PO SCH ×2 (08:10→20:39)
[2021-07-29] MEDS: LORazepam 2 MG TABLET PO PRN ×2 (08:10→20:39)
[2021-07-29 08:30] VITALS: BP 111/73
[2021-07-29 12:46] LABS: GLUCOMETER DEV NAME(LOC) POC.BV
[2021-07-29 16:24] VITALS: BP 103/66
[2021-07-29] MEDS: ZOLPIDEM TARTRATE 10 MG TABLET PO PRN (20:39)
[2021-07-30 05:36] VITALS: BP 128/74
[2021-07-30] MEDS: LEVOTHYROXINE SODIUM 50 MCG TABLET PO SCH (06:45)
[2021-07-30 08:26] VITALS: BP 134/80
[2021-07-30] MEDS: LORazepam 2 MG TABLET PO PRN ×2 (09:27→20:54)
[2021-07-30] MEDS: OMEPRAZOLE 20 MG CAPSULE PO SCH (09:28)
[2021-07-30] MEDS: CloZAPine 100 MG TABLET PO SCH ×2 (09:28→20:54)
[2021-07-30] MEDS: LITHIUM CARBONATE 600 MG CAPSULE PO SCH ×2 (09:28→20:54)
[2021-07-30] MEDS: DIVALPROEX SODIUM 250 MG DR TABLET PO SCH ×2 (09:28→20:54)
[2021-07-30] MEDS: NICOTINE POLACRILEX 2 MG LOZENGE PO PRN (10:13)
[2021-07-30 16:31] VITALS: BP 140/98
[2021-07-30] MEDS: ZOLPIDEM TARTRATE 10 MG TABLET PO PRN (20:54)
[2021-07-31 04:54] VITALS: BP 122/76
[2021-07-31] MEDS: LEVOTHYROXINE SODIUM 50 MCG TABLET PO SCH (06:18)
[2021-07-31 08:30] VITALS: BP 120/73
[2021-07-31] MEDS: OMEPRAZOLE 20 MG CAPSULE PO SCH (09:05)
[2021-07-31] MEDS: DIVALPROEX SODIUM 250 MG DR TABLET PO SCH (09:05)
[2021-07-31] MEDS: LITHIUM CARBONATE 600 MG CAPSULE PO SCH ×2 (09:05→20:36)
[2021-07-31] MEDS: LORazepam 2 MG TABLET PO PRN ×3 (09:06→20:37)
[2021-07-31] MEDS: CloZAPine 100 MG TABLET PO SCH ×2 (09:10→20:36)
[2021-07-31 16:30] VITALS: BP 125/84
[2021-07-31] MEDS: NICOTINE POLACRILEX 2 MG LOZENGE PO PRN (19:47)
[2021-07-31] MEDS: VALPROIC ACID 250 MG/5 ML SOLUTION UDCUP PO SCH (20:37)
[2021-07-31] MEDS: ZOLPIDEM TARTRATE 10 MG TABLET PO PRN (20:37)
[2021-08-01 05:33] VITALS: BP 128/72
[2021-08-01] MEDS: LEVOTHYROXINE SODIUM 50 MCG TABLET PO SCH (06:36)
[2021-08-01 08:14] VITALS: BP 128/70
[2021-08-01] MEDS: LORazepam 2 MG TABLET PO PRN ×2 (08:22→21:09)
[2021-08-01] MEDS: LITHIUM CARBONATE 600 MG CAPSULE PO SCH ×2 (08:22→21:09)
[2021-08-01] MEDS: VALPROIC ACID 250 MG/5 ML SOLUTION UDCUP PO SCH ×2 (08:22→21:09)
[2021-08-01] MEDS: OMEPRAZOLE 20 MG CAPSULE PO SCH (08:22)
[2021-08-01] MEDS: CloZAPine 100 MG TABLET PO SCH ×2 (08:22→21:09)
[2021-08-01] MEDS: NICOTINE POLACRILEX 2 MG LOZENGE PO PRN (12:12)
[2021-08-01 16:21] VITALS: BP 109/75
[2021-08-01] MEDS: ZOLPIDEM TARTRATE 10 MG TABLET PO PRN (21:09)
[2021-08-02 05:05] VITALS: BP 122/70
[2021-08-02] MEDS: LEVOTHYROXINE SODIUM 50 MCG TABLET PO SCH (06:37)
[2021-08-02] MEDS: OMEPRAZOLE 20 MG CAPSULE PO SCH (08:04)
[2021-08-02] MEDS: LITHIUM CARBONATE 600 MG CAPSULE PO SCH ×2 (08:04→21:16)
[2021-08-02] MEDS: VALPROIC ACID 250 MG/5 ML SOLUTION UDCUP PO SCH ×2 (08:05→21:18)
[2021-08-02] MEDS: LORazepam 2 MG TABLET PO PRN (08:05)
[2021-08-02] MEDS: CloZAPine 100 MG TABLET PO SCH ×2 (08:05→21:16)
[2021-08-02 08:38] VITALS: BP 118/79
[2021-08-02] MEDS ORDERED: CLOZ100T32 PO ×2 (09:06)
[2021-08-02] MEDS ORDERED: VALP250S23 PO (09:06)
[2021-08-02] MEDS ORDERED: LEVO50 PO (09:06)
[2021-08-02] MEDS ORDERED: LITH600C5 PO (09:06)
[2021-08-02 11:21] LABS: GLUCOMETER DEV NAME(LOC) POC.BV
[2021-08-02 16:46] VITALS: BP 125/82
[2021-08-03] MEDS: LEVOTHYROXINE SODIUM 50 MCG TABLET PO SCH (06:34)
[2021-08-03] MEDS: LITHIUM CARBONATE 600 MG CAPSULE PO SCH (08:25)
[2021-08-03] MEDS: VALPROIC ACID 250 MG/5 ML SOLUTION UDCUP PO SCH (08:25)
[2021-08-03] MEDS: OMEPRAZOLE 20 MG CAPSULE PO SCH (08:25)
[2021-08-03] MEDS: CloZAPine 100 MG TABLET PO SCH (08:25)
[2021-08-03 08:41] VITALS: BP 125/86
== END 2021-08-03 10:00 | DRG 885 ==
LOC: UNDOADMIN 19:06 → B3A 19:06
PROVIDERS: ADMIT Psychiatry & Neurology Psychiatry; ATTEND Psychiatry & Neurology Psychiatry
DX: F25.0 Schizoaffective disorder, bipolar type (principal); U07.1 COVID-19; R45.851 Suicidal ideations; F41.9 Anxiety disorder, unspecified; K21.9 Gastro-esophageal reflux disease without esophagitis; Z59.00 Homelessness unspecified; Z66 Do not resuscitate; E03.9 Hypothyroidism, unspecified; F10.10 Alcohol abuse, uncomplicated; F15.10 Other stimulant abuse, uncomplicated; Z79.899 Other long term (current) drug therapy; R00.1 Bradycardia, unspecified
CPT/HCPCS: 80048; 80061; 80159; 80164; 80178; 83036; 84439; 84443; 85025; 86592; J1200; J1630; J2060; J3230; J3535; Q9967